=== PATIENT | male | born 1965 | race Caucasian/White ===

== ENCOUNTER 2020-02-18 09:28 | Emergency (ER) | payer OTHER ==
[2020-02-18 09:41] VITALS: BP 167/89; PULSE 56
[2020-02-18] MEDS ORDERED: Ketorolac 60 MG/2 ML SDV IM ONE (10:15)
--- NOTE | 2020-02-18 10:21 | EDM.PDOC ---
ED HPI GENERAL MEDICAL PROBLEM - General Chief Complaint: Lower Extremity Injury/Pain Stated Complaint: LEFT ANKLE PAIN Time Seen by Provider: 02/18/20 10:05 Source of Information: Reports: Patient, Old Records History Limitations: Reports: No Limitations - History of Present Illness INITIAL COMMENTS - FREE TEXT/NARRATIVE: 54 yo male developed intermittent L ankle pain starting last night about midnight. Pain kept him awake most of the night. He denies injury or swelling. Nothing hurts to touch on the ankle. No hx of the same. No self tx before arrival. Pain seems less often with his foot down and more often when it is up with him lying. He called his primary this morning and was told to come to the ER(Dr. Salgado). Has a recent hx of orchiectomy for testicular CA. Also, has a pHx of AODM x 8 yrs. Onset: Today Onset Date: 02/18/20 Onset Time: 00:00 Duration: Intermittent Location: Reports: Lower Extremity, Left Quality: Reports: Stabbing, Throbbing Severity: Severe Improves with: Reports: Other (just goes away) Worsens with: Reports: Other (unknown, seems worse when up. ) Context: Reports: Other (See HPI) Associated Symptoms: Reports: No Other Symptoms Treatments NATUROPATHIC ONCOLOGY PROVIDER: Reports: Other (see below) (none) Left Ankle Pain Score (Numeric/FACES): 8 - Related Data Allergies Allergy/AdvReac Type Severity Reaction Status Date / Time No Known Allergies Allergy Verified 02/18/20 09:41 Home Meds: Home Meds Aspirin [Ecotrin EC] 81 mg PO DAILY 02/18/20 [History] Escitalopram Oxalate [Lexapro] 10 mg PO DAILY 02/18/20 [History] Lisinopril [Zestril] 2.5 tab PO DAILY 02/18/20 [History] Rosuvastatin [Crestor] 10 mg PO DAILY 02/18/20 [History] metFORMIN [Glucophage] 1,000 mg PO BIDMEALS 02/18/20 [History] Past Medical History HEENT History: Reports: None Cardiovascular History: Reports: High Cholesterol, Hypertension Respiratory History: Reports: SOB Other Respiratory History: hx of years ago Genitourinary History: Reports: None Endocrine/Metabolic History: Reports: Diabetes, Type II Oncologic (Cancer) History: Reports: Other (See Below) Dermatologic History: Reports: Other (See Below) Other Dermatologic History: poison say- sever reaction - Infectious Disease History Infectious Disease History: Reports: Chicken Pox, Measles, Shingles - Past Surgical History Head Surgeries/Procedures: Reports: None HEENT Surgical History: Reports: Adenoidectomy, LASIK, Tonsillectomy Cardiovascular Surgical History: Reports: None Respiratory Surgical History: Reports: None Male Surgical History: Reports: Other (See Below) Other Male Surgeries/Procedures: left testicle removed 2019 due to CA Endocrine Surgical History: Reports: None Oncologic Surgical History: Reports: None Dermatological Surgical History: Reports: None Social & Family History - Tobacco Use Smoking Status *Q: Former Smoker Used Tobacco, but Quit: Yes Month/Year Tobacco Last Used: 2004 Second Hand Smoke Exposure: No - Caffeine Use Caffeine Use: Reports: Coffee, Soda - Recreational Drug Use Recreational Drug Use: No Review of Systems - Review of Systems Review Of Systems: See Below Constitutional: Reports: No Symptoms Musculoskeletal: Reports: Joint Pain (intermittent L ankle pain). Denies: Leg Pain, Foot Pain, Joint Swelling Skin: Reports: No Symptoms Neurological: Reports: No Symptoms. Denies: Numbness, Paresthesia, Tingling, Difficulty Walking, Weakness ED EXAM, GENERAL - Physical Exam Exam: See Below Exam Limited By: No Limitations General Appearance: Alert, WD/WN, No Apparent Distress Cardiovascular: Other Peripheral Pulses: 2+: Posterior Tibial (L), Posterior Tibial (R), Dorsalis Pedis (L), Dorsalis Pedis (R) Extremities: Normal Inspection, Normal Range of Motion, Non-Tender, No Pedal Edema. No: Pedal Edema Neurological: Alert, Oriented, CN II-XII Intact, Normal Cognition, No Motor/ Sensory Deficits Psychiatric: Normal Affect, Normal Mood Skin Exam: Warm, Dry, Intact, No Rash, Other (some chronic brawny skin discoloration, no redness or change in skin temp. ) Course - Vital Signs Last Recorded V/S: Last Vital Signs Temp 35.2 C L 02/18/20 09:51 Pulse 56 L 02/18/20 09:51 Resp 16 02/18/20 09:51 BP 167/89 H 02/18/20 09:51 Pulse Ox 100 02/18/20 09:51 - Orders/Labs/Meds Meds: Medications Discontinued Medications Generic Name Dose Route Start Last Admin Trade Name Sera PRN Reason Stop Dose Admin Ketorolac Tromethamine 60 mg 02/18/20 10:15 02/18/20 10:19 Toradol IM 02/18/20 10:16 60 mg ONETIME ONE Administration - Radiology Interpretation Free Text/Narrative:: L ankle [id number] degen changes only. - Re-Assessments/Exams Free Text/Narrative Re-Assessment/Exam: 02/18/20 11:15 Pain not gone, but much less frequent since the Toradol was given. He is not interested at this time in meds for neuropathy. Has a virtual appt with his primary tomorrow. Departure - Departure Time of Disposition: 11:20 Disposition: Home, Self-Care 01 Condition: Fair Clinical Impression: Ankle pain, left Qualifiers: Chronicity: acute Qualified Code(s): M25.572 - Pain in left ankle and joints of left foot - Discharge Information *PRESCRIPTION DRUG MONITORING PROGRAM REVIEWED*: No *COPY OF PRESCRIPTION DRUG MONITORING REPORT IN PATIENT VAL: No Referrals: PCP,None [Primary Care Provider] - Forms: ED Department Discharge Additional Instructions: Etodolac 400 mg every 12 hrs with food starting after 4 pm today. You may add acetaminophen for added relief up to 1000 mg every 6 hrs. If these do not help, you may benefit from meds directed at diabetic neuropathy like gabapentin. F/U with Dr. Salgado as scheduled. Sepsis Event Note - Evaluation Sepsis Screening Result: No Definite Risk - Focused Exam Vital Signs: Vital Signs Temp Pulse Resp BP Pulse Ox 02/18/20 09:51 35.2 C L 56 L 16 167/89 H 100 02/18/20 09:39 35.2 C L 56 L 16 167/89 H 100 Date Exam was Performed: 02/18/20 Time Exam was Performed: 11:15
--- NOTE | 2020-02-18 10:37 | CR ---
Ankle Min 3V Lt CLINICAL HISTORY: Ankle pain FINDINGS: The soft tissues are normal. No acute fracture or dislocation is noted. Ankle mortise is intact. Articular surfaces are smooth. There is some minimal spurring off the tip of the fibula. There are some ovoid calcifications near the plantar fascia. There is a small calcaneal spur. Impression: No fracture or osseous lesion Minimal degenerative changes Small calcaneal spur Ovoid calcifications just superficial to the plantar fascia. These may be vascular
== END 2020-02-18 11:24 | disposition home or self-care (01) ==
LOC: JP.ED 09:28
DX: M25.572 Pain in left ankle and joints of left foot (principal); E78.00 Pure hypercholesterolemia, unspecified; I10 Essential (primary) hypertension; E11.9 Type 2 diabetes mellitus without complications; Z79.82 Long term (current) use of aspirin; Z79.84 Long term (current) use of oral hypoglycemic drugs; Z87.891 Personal history of nicotine dependence
CPT/HCPCS: 73610; 96372; 99283; J1885

== ENCOUNTER 2021-09-09 15:56 | Inpatient (IN) | payer OTHER ==
--- NOTE | 2021-09-09 17:07 | EDM.PDOC ---
ED HPI GENERAL MEDICAL PROBLEM - General Chief Complaint: Lower Extremity Injury/Pain Stated Complaint: INJURED R FOOT, FEVER Time Seen by Provider: 09/09/21 16:55 Source of Information: Reports: Patient, Family, Provider, RN Notes Reviewed History Limitations: Reports: No Limitations - History of Present Illness INITIAL COMMENTS - FREE TEXT/NARRATIVE: 55-year-old gentleman presents emergency department today for new onset cellulitis to his right foot. I did receive a call from one of his providers the dairy specialist Dr. Mar who said he has a known diabetic foot ulcer that he has been working on however he presents today with new redness and swelling to the foot consistent with a cellulitis. He did do an x-ray in clinic which was unremarkable. He states over the last couple days is progressively gotten worse the chronic wound in his foot has been there for couple months he has had fevers for a couple of days generally feeling fatigued and rundown Right Leg Pain Score (Numeric/FACES): 5 - Related Data Allergies Allergy/AdvReac Type Severity Reaction Status Date / Time No Known Allergies Allergy Verified 09/09/21 16:17 Home Meds: Home Meds Escitalopram Oxalate [Lexapro] 10 mg PO DAILY 02/18/20 [History] Rosuvastatin [Crestor] 10 mg PO DAILY 02/18/20 [History] lisinopriL [Zestril] 2.5 tab PO DAILY 02/18/20 [History] metFORMIN [Glucophage] 1,000 mg PO BIDMEALS 02/18/20 [History] Aspirin [Aspirin EC] 325 mg PO DAILY 09/09/21 [History] Dulaglutide [Trulicity] 0.75 mg SQ WEEKLY 09/09/21 [History] Insulin Glarg,Human.Rec.Analog [Lantus Solostar] 10 units SQ BEDTIME 09/09/21 [History] Past Medical History Cardiovascular History: Reports: High Cholesterol, Hypertension Respiratory History: Reports: SOB Other Respiratory History: hx of years ago Musculoskeletal History: Reports: Other (See Below) Other Musculoskeletal History: swollen, inflamed right foot and calf Neurological History: Reports: Other (See Below) Other Neuro History: tia behind eye Psychiatric History: Reports: Depression Endocrine/Metabolic History: Reports: Diabetes, Type II Hematologic History: Reports: Other (See Below) Other Hematologic History: hx. bacterial meningitis Oncologic (Cancer) History: Reports: Other (See Below) Other Oncologic History: testicular CA Dermatologic History: Reports: Other (See Below) Other Dermatologic History: poison say- sever reaction - Infectious Disease History Infectious Disease History: Reports: Chicken Pox, Measles, Shingles - Past Surgical History Head Surgeries/Procedures: Reports: None HEENT Surgical History: Reports: Adenoidectomy, LASIK, Tonsillectomy Cardiovascular Surgical History: Reports: None Respiratory Surgical History: Reports: None GI Surgical History: Reports: None Male Surgical History: Reports: Other (See Below) Other Male Surgeries/Procedures: left testicle removed 2019 due to CA Endocrine Surgical History: Reports: None Neurological Surgical History: Reports: None Musculoskeletal Surgical History: Reports: None Oncologic Surgical History: Reports: None Dermatological Surgical History: Reports: None Social & Family History - Family History Family Medical History: No Pertinent Family History - Tobacco Use Tobacco Use Status *Q: Current Every Day Tobacco User Years of Tobacco use: 20 Packs/Tins Daily: 0.5 Used Tobacco, but Quit: No - Caffeine Use Caffeine Use: Reports: Coffee, Soda - Recreational Drug Use Recreational Drug Use: No Review of Systems - Review of Systems Review Of Systems: See Below Constitutional: Reports: Chills, Fever Eyes: Reports: No Symptoms Ears: Reports: No Symptoms Nose: Reports: No Symptoms Mouth/Throat: Reports: No Symptoms Respiratory: Reports: No Symptoms Cardiovascular: Reports: No Symptoms GI/Abdominal: Reports: No Symptoms Musculoskeletal: Reports: Foot Pain Skin: Reports: Pallor, Rash, Erythema, Wound ED EXAM, GENERAL - Physical Exam Exam: See Below Free Text/Narrative:: Examination of the right foot it is markedly edematous he does have a ulcer with chronic granulation tissue over metatarsal #2 and 3 the foot is warm to the touch tender to the touch, pedal pulses not palpable Exam Limited By: No Limitations General Appearance: Alert, WD/WN, No Apparent Distress Respiratory/Chest: No Respiratory Distress, Lungs Clear, Normal Breath Sounds, No Accessory Muscle Use, Chest Non-Tender Cardiovascular: Regular Rate, Rhythm, No Murmur Course - Vital Signs Last Recorded V/S: Last Vital Signs Temp 100.2 F 09/09/21 16:13 Pulse 78 09/09/21 17:48 Resp 16 09/09/21 17:48 BP 121/69 09/09/21 17:48 Pulse Ox 98 09/09/21 17:48 - Orders/Labs/Meds Orders: Active Orders 24 hr Category Date Time Status Vital Signs [RC] Q1H Care 09/09/21 17:02 Active COVID-19/FLU A+B/RSV [MOLEC] Stat Lab 09/09/21 17:53 Ordered CULTURE BLOOD [BC] Urgent Lab 09/09/21 17:12 Received CULTURE BLOOD [BC] Urgent Lab 09/09/21 17:18 Received Lactated Ringers [Ringers, Lactated] 1,000 ml Med 09/09/21 17:15 Active IV ASDIRECTED Piperacillin/Tazobactam [Piperacil-Tazobact] 4.5 gm Med 09/09/21 23:15 Active Sodium Chloride 0.9% [Normal Saline AdvBag] 100 ml IV Q6H Vancomycin 1.5 gm Med 09/09/21 18:00 Active Sodium Chloride 0.9% [Normal Saline] 250 ml IV Q12H Blood Culture x2 Reflex Set [OM.PC] Urgent Oth 09/09/21 17:02 Ordered Isolation [COMM] Stat Oth 09/09/21 17:05 Ordered Medication Orders Lactated Ringer's (Ringers, Lactated) 1,000 mls @ 999 mls/hr IV ASDIRECTED ARUN Last Admin: 09/09/21 17:44 Dose: 999 mls/hr Documented by: [id number] Vancomycin HCl 1.5 gm/ Sodium (Chloride) 250 mls @ 167 mls/hr IV Q12H ARUN Piperacillin Sod/Tazobactam (Sod 4.5 gm/ Sodium Chloride) 100 mls @ 100 mls/hr IV Q6H [facility] Labs: Laboratory Tests 09/09/21 09/09/21 09/09/21 Range/Units 17:12 17:12 17:12 WBC 9.4 (4.5-11.0) K/uL RBC 3.94 L (4.30-5.90) M/uL Hgb 11.6 L (12.0-15.0) g/dL Hct 35.0 L (40.0-54.0) % MCV 89 (80-98) fL MCH 29 (27-31) pg MCHC 33 (32-36) % Plt Count 319 (150-400) K/uL Add Manual Diff Yes Neutrophils % (Manual) 71 H (36-66) % Lymphocytes % (Manual) 22 L (24-44) % Monocytes % (Manual) 6 (2-6) % Eosinophils % (Manual) 1 L (2-4) % Atypical Lymphocytes Few Sodium 135 L (140-148) mmol/L Potassium 4.8 (3.6-5.2) mmol/L Chloride 99 L (100-108) mmol/L Carbon Dioxide 29 (21-32) mmol/L Anion Gap 11.8 (5.0-14.0) mmol/L BUN 25 H (7-18) mg/dL Creatinine 1.2 (0.8-1.3) mg/dL Est Cr Clr Drug Dosing 85.39 mL/min Estimated GFR (MDRD) > 60 (>60) Glucose 216 H (74-106) mg/dL Lactic Acid 0.9 (0.4-2.0) mmol/L Calcium 8.5 (8.5-10.1) mg/dL Total Bilirubin 0.4 (0.2-1.0) mg/dL AST 23 (15-37) U/L ALT 37 (12-78) U/L Alkaline Phosphatase 103 (46-116) U/L C-Reactive Protein 18.95 H (0.0-0.3) mg/dL Total Protein 7.7 (6.4-8.2) g/dL Albumin 2.6 L (3.4-5.0) g/dL Globulin 5.1 H (2.3-3.5) g/dL Albumin/Globulin Ratio 0.5 L (1.2-2.2) Procalcitonin ng/mL 09/09/21 Range/Units 17:12 WBC (4.5-11.0) K/uL RBC (4.30-5.90) M/uL Hgb (12.0-15.0) g/dL Hct (40.0-54.0) % MCV (80-98) fL MCH (27-31) pg MCHC (32-36) % Plt Count (150-400) K/uL Add Manual Diff Neutrophils % (Manual) (36-66) % Lymphocytes % (Manual) (24-44) % Monocytes % (Manual) (2-6) % Eosinophils % (Manual) (2-4) % Atypical Lymphocytes Sodium (140-148) mmol/L Potassium (3.6-5.2) mmol/L Chloride (100-108) mmol/L Carbon Dioxide (21-32) mmol/L Anion Gap (5.0-14.0) mmol/L BUN (7-18) mg/dL Creatinine (0.8-1.3) mg/dL Est Cr Clr Drug Dosing mL/min Estimated GFR (MDRD) (>60) Glucose (74-106) mg/dL Lactic Acid (0.4-2.0) mmol/L Calcium (8.5-10.1) mg/dL Total Bilirubin (0.2-1.0) mg/dL AST (15-37) U/L ALT (12-78) U/L Alkaline Phosphatase (46-116) U/L C-Reactive Protein (0.0-0.3) mg/dL Total Protein (6.4-8.2) g/dL Albumin (3.4-5.0) g/dL Globulin (2.3-3.5) g/dL Albumin/Globulin Ratio (1.2-2.2) Procalcitonin 0.14 ng/mL Meds: Medications Generic Name Dose Route Start Last Admin Trade Name Freq PRN Reason Stop Dose Admin Lactated Ringer's 1,000 mls @ 999 mls/hr 09/09/21 17:15 09/09/21 17:44 Ringers, Lactated IV 999 mls/hr ASDIRECTED ARUN Administration Vancomycin HCl 1.5 gm/ Sodium 250 mls @ 167 mls/hr 09/09/21 18:00 Chloride IV Q12H ARUN Piperacillin Sod/Tazobactam 100 mls @ 100 mls/hr 09/09/21 23:15 Sod 4.5 gm/ Sodium Chloride IV Q6H ARUN Discontinued Medications Generic Name Dose Route Start Last Admin Trade Name Freq PRN Reason Stop Dose Admin Piperacillin Sod/Tazobactam 100 mls @ 100 mls/hr 09/09/21 17:15 09/09/21 17:43 Sod 4.5 gm/ Sodium Chloride IV 09/09/21 18:00 100 mls/hr Q6H ARUN Administration Departure - Departure Time of Disposition: 18:35 Disposition: Admitted As Inpatient 66 Condition: Fair Clinical Impression: Cellulitis of right foot Diabetic foot ulcer Qualifiers: Diabetic foot ulcer location: midfoot Diabetes mellitus type: type 2 Laterality: left Non-pressure ulcer stage: with fat layer exposed Qualified Code(s): E11.621 - Type 2 diabetes mellitus with foot ulcer; L97.422 - 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 - Discharge Information Referrals: Chiquis Salgado MD [Primary Care Provider] - Forms: ED Department Discharge Sepsis Event Note (ED) - Evaluation Sepsis Screening Result: Sepsis Risk - Focused Exam Vital Signs: Vital Signs Temp Pulse Resp BP Pulse Ox 09/09/21 17:48 78 16 121/69 98 09/09/21 16:13 100.2 F 93 16 136/72 97 - My Orders Last 24 Hours: My Active Orders 09/09/21 17:02 Vital Signs [RC] Q1H Blood Culture x2 Reflex Set [OM.PC] Urgent 09/09/21 17:05 Isolation [COMM] Stat 09/09/21 17:12 CULTURE BLOOD [BC] Urgent 09/09/21 17:15 Lactated Ringers [Ringers, Lactated] 1,000 ml IV ASDIRECTED 09/09/21 17:18 CULTURE BLOOD [BC] Urgent 09/09/21 17:53 COVID-19/FLU A+B/RSV [MOLEC] Stat 09/09/21 18:00 Vancomycin 1.5 gm Sodium Chloride 0.9% [Normal Saline] 250 ml IV Q12H 09/09/21 23:15 Piperacillin/Tazobactam [Piperacil-Tazobact] 4.5 gm Sodium Chloride 0.9% [Normal Saline AdvBag] 100 ml IV Q6H - Assessment/Plan Last 24 Hours: My Active Orders 09/09/21 17:02 Vital Signs [RC] Q1H Blood Culture x2 Reflex Set [OM.PC] Urgent 09/09/21 17:05 Isolation [COMM] Stat 09/09/21 17:12 CULTURE BLOOD [BC] Urgent 09/09/21 17:15 Lactated Ringers [Ringers, Lactated] 1,000 ml IV ASDIRECTED 09/09/21 17:18 CULTURE BLOOD [BC] Urgent 09/09/21 17:53 COVID-19/FLU A+B/RSV [MOLEC] Stat 09/09/21 18:00 Vancomycin 1.5 gm Sodium Chloride 0.9% [Normal Saline] 250 ml IV Q12H 09/09/21 23:15 Piperacillin/Tazobactam [Piperacil-Tazobact] 4.5 gm Sodium Chloride 0.9% [Normal Saline AdvBag] 100 ml IV Q6H Plan: Assessment Acuity = acute Site and laterality = cellulitis left foot Etiology = probable bacterial cause Manifestations = edema left foot Location of injury = Home Lab values = WBC unremarkable CBC unremarkable lactic acid normal 0.9 CRP elevated 18.5 procalcitonin normal range 0.4 Plan Blood cultures initiated emergent department, antibiotics Zosyn and vancomycin i nitiated emergency department call discussed case hospitalist on-call at 1800 kindly agreed to come evaluate the patient emergency department for admission This note was dictated using [employer] voice recognition software please call with any questions on syntax or grammar.
[2021-09-09] MEDS ORDERED: Piperacillin/Tazobactam 4.5 GM in Sodium Chloride 0.9% 100 ML IV SCH (17:15)
[2021-09-09] MEDS ORDERED: Lactated Ringers 1,000 ML IV SCH (17:15)
[2021-09-09 18:34] LABS: CORONAVIRUS COVID-19 NAA NEGATIVE (NEGATIVE)
--- NOTE | 2021-09-09 19:22 | PCM.HP.2 ---
H&P History of Present Illness - General Date of Service: 09/09/21 Admit Problem/Dx: Admission Diagnosis/Problem Admission Diagnosis/Problem Cellulitis and abscess of lower leg Source of Information: Patient, Provider, RN History Limitations: Reports: No Limitations - History of Present Illness Initial Comments - Free Text/Narative: chief complaint- Cellulitis of right lower leg This is a 55 year old male presented to ER for evaluation of worsen lower leg infection. and Mrs. Leonard reports he has been having diabetic ulcers for months. In the past the diabetic foot and legs ulcers have healed, but for the past two month ulcers on bottom of right foot have increase in size. His toes are swollen and now has blisters on the lower legs. reports fevers and chills this past weekend, temp 102.1. denies any pain in legs/foot due to neuropathy. Wound Care- Dr. Mar Primary Care - Dr. Salgado Immunizations- Covid 19 vaccinations x2, needs influenza Onset of Symptoms: Reports: Gradual (months- started in May after wearing a new pair of boots.) Symptom Onset Date: 09/04/21 (fever/chills) Duration of Symptoms: Reports: Getting Worse Location: Reports: Lower Extremity, Right Quality: Reports: Other (denies any pain) Improves with: Reports: None Worsens with: Reports: None Context: Reports: Other (diabetic foot ulcers) Associated Symptoms: Reports: Fever/Chills, Loss of Appetite, Nausea/Vomiting Right Leg Pain Score (Numeric/FACES): 5 - Related Data Allergies/Adverse Reactions: Allergies Allergy/AdvReac Type Severity Reaction Status Date / Time No Known Allergies Allergy Verified 09/09/21 16:17 Home Medications: Home Meds Escitalopram Oxalate [Lexapro] 10 mg PO DAILY 02/18/20 [History] Rosuvastatin [Crestor] 10 mg PO DAILY 02/18/20 [History] lisinopriL [Zestril] 2.5 tab PO DAILY 02/18/20 [History] metFORMIN [Glucophage] 1,000 mg PO BIDMEALS 02/18/20 [History] Aspirin [Aspirin EC] 325 mg PO DAILY 09/09/21 [History] Dulaglutide [Trulicity] 0.75 mg SQ WEEKLY 09/09/21 [History] Insulin Glarg,Human.Rec.Analog [Lantus Solostar] 10 units SQ BEDTIME 09/09/21 [History] Past Medical History HEENT History: Reports: None Cardiovascular History: Reports: High Cholesterol, Hypertension Respiratory History: Reports: SOB Other Respiratory History: hx of years ago Genitourinary History: Reports: None Musculoskeletal History: Reports: Other (See Below) Other Musculoskeletal History: swollen, inflamed right foot and calf Neurological History: Reports: Other (See Below) Other Neuro History: tia behind eye Psychiatric History: Reports: Depression Endocrine/Metabolic History: Reports: Diabetes, Type II Hematologic History: Reports: Other (See Below) Other Hematologic History: hx. bacterial meningitis Oncologic (Cancer) History: Reports: Other (See Below) Other Oncologic History: testicular CA Dermatologic History: Reports: Other (See Below) Other Dermatologic History: poison say- sever reaction - Infectious Disease History Infectious Disease History: Reports: Chicken Pox, Measles, Shingles - Past Surgical History Head Surgeries/Procedures: Reports: None HEENT Surgical History: Reports: Adenoidectomy, LASIK, Tonsillectomy Cardiovascular Surgical History: Reports: None Respiratory Surgical History: Reports: None GI Surgical History: Reports: None Male Surgical History: Reports: Other (See Below) Other Male Surgeries/Procedures: left testicle removed 2019 due to CA Endocrine Surgical History: Reports: None Neurological Surgical History: Reports: None Musculoskeletal Surgical History: Reports: None Oncologic Surgical History: Reports: None Dermatological Surgical History: Reports: None Social & Family History - Family History Family Medical History: No Pertinent Family History - Tobacco Use Tobacco Use Status *Q: Current Every Day Tobacco User Years of Tobacco use: 20 Packs/Tins Daily: 0.5 Used Tobacco, but Quit: No - Caffeine Use Caffeine Use: Reports: Coffee, Soda - Recreational Drug Use Recreational Drug Use: No - Living Situation & Occupation Living situation: Reports: Occupation: Employed (lives with of 5 years, 4 children, employed by [employer]) H&P Review of Systems - Review of Systems: Review Of Systems: See Below General: Reports: Fever, Chills, Malaise, Decreased Appetite HEENT: Reports: No Symptoms, Glasses Pulmonary: Reports: No Symptoms Cardiovascular: Reports: No Symptoms Gastrointestinal: Reports: Nausea Genitourinary: Reports: Other (2019- history of testicular cancer and removal of single teste.) Musculoskeletal: Reports: Joint Pain (right toes, right foot, right lower leg) Skin: Reports: Erythema (right lower leg), Wound (right anterior lower leg, right foot including toes), Change in Color (right lower leg) Psychiatric: Reports: No Symptoms Neurological: Reports: No Symptoms Hematologic/Lymphatic: Reports: No Symptoms Immunologic: Reports: No Symptoms Exam - Exam Exam: See Below - Vital Signs Vital Signs: Last Vital Signs Temp 100.2 F 09/09/21 16:13 Pulse 78 09/09/21 17:48 Resp 16 09/09/21 17:48 BP 121/69 09/09/21 17:48 Pulse Ox 98 09/09/21 17:48 Weight: 221 lb - Exam Quality Assessment: DVT Prophylaxis, Skin Breakdown General: Alert, Oriented, 4 HEENT: PERRLA, Hearing Intact, Mucosa Moist & [place], Nares Patent, Normal Nasal Septum, Posterior Pharynx Clear, Conjunctiva Clear, EOMI, EACs Clear, TMs Clear Neck: Supple, Trachea Midline, 2 Lungs: Clear to Auscultation, Normal Respiratory Effort Cardiovascular: Regular Rate, Regular Rhythm, Normal S1, Normal S2 GI/Abdominal Exam: Normal Bowel Sounds, Soft, Non-Tender, No Organomegaly, No Distention, No Abnormal Bruit, No Mass, Pelvis Stable (Male) Exam: Deferred Rectal (Males) Exam: Deferred Back Exam: Normal Inspection, Full Range of Motion Extremities: Normal Capillary Refill (left foot), Pedal Edema (right leg), Slow Capillary Refill (right foot), Joint Swelling (right foot including toes), Limited Range of Motion (right ankle), Increased Warmth (right lower leg), Redness (right lower leg, foot and toes) Peripheral Pulses: 0: Dorsalis Pedis (R), 2+: Radial (L), Radial (R), Dorsalis Pedis (L) Skin: Warm, Ecchymosis, Wound (right lower leg), Decubitis (right foot and lower leg), Other (left toenail very long and curling over) Neurological: Reflexes Equal Bilateral, Strength Equal Bilateral Neuro Extensive - Mental Status: Alert, Oriented x3, Normal Mood/Affect, Normal Cognition Neuro Extensive - Motor, Sensory, Reflexes: Motor/Sensory Deficits Psychiatric: Alert, Normal Affect, Normal Mood - Patient Data Lab Results Last 24 hrs: Laboratory Results - last 24 hr 09/09/21 09/09/21 09/09/21 Range/Units 17:12 17:12 17:12 WBC 9.4 (4.5-11.0) K/uL RBC 3.94 L (4.30-5.90) M/uL Hgb 11.6 L (12.0-15.0) g/dL Hct 35.0 L (40.0-54.0) % MCV 89 (80-98) fL MCH 29 (27-31) pg MCHC 33 (32-36) % Plt Count 319 (150-400) K/uL Add Manual Diff Yes Neutrophils % (Manual) 71 H (36-66) % Lymphocytes % (Manual) 22 L (24-44) % Monocytes % (Manual) 6 (2-6) % Eosinophils % (Manual) 1 L (2-4) % Atypical Lymphocytes Few Sodium 135 L (140-148) mmol/L Potassium 4.8 (3.6-5.2) mmol/L Chloride 99 L (100-108) mmol/L Carbon Dioxide 29 (21-32) mmol/L Anion Gap 11.8 (5.0-14.0) mmol/L BUN 25 H (7-18) mg/dL Creatinine 1.2 (0.8-1.3) mg/dL Est Cr Clr Drug Dosing 85.39 mL/min Estimated GFR (MDRD) > 60 (>60) Glucose 216 H (74-106) mg/dL Lactic Acid 0.9 (0.4-2.0) mmol/L Calcium 8.5 (8.5-10.1) mg/dL Total Bilirubin 0.4 (0.2-1.0) mg/dL AST 23 (15-37) U/L ALT 37 (12-78) U/L Alkaline Phosphatase 103 (46-116) U/L C-Reactive Protein 18.95 H (0.0-0.3) mg/dL Total Protein 7.7 (6.4-8.2) g/dL Albumin 2.6 L (3.4-5.0) g/dL Globulin 5.1 H (2.3-3.5) g/dL Albumin/Globulin Ratio 0.5 L (1.2-2.2) Procalcitonin ng/mL Influenza Type A RNA (NEGATIVE) RSV RNA (INAAT) (NEGATIVE) Influenza Type B RNA (NEGATIVE) SARS-CoV-2 RNA (DAISY) (NEGATIVE) 09/09/21 09/09/21 Range/Units 17:12 17:53 WBC (4.5-11.0) K/uL RBC (4.30-5.90) M/uL Hgb (12.0-15.0) g/dL Hct (40.0-54.0) % MCV (80-98) fL MCH (27-31) pg MCHC (32-36) % Plt Count (150-400) K/uL Add Manual Diff Neutrophils % (Manual) (36-66) % Lymphocytes % (Manual) (24-44) % Monocytes % (Manual) (2-6) % Eosinophils % (Manual) (2-4) % Atypical Lymphocytes Sodium (140-148) mmol/L Potassium (3.6-5.2) mmol/L Chloride (100-108) mmol/L Carbon Dioxide (21-32) mmol/L Anion Gap (5.0-14.0) mmol/L BUN (7-18) mg/dL Creatinine (0.8-1.3) mg/dL Est Cr Clr Drug Dosing mL/min Estimated GFR (MDRD) (>60) Glucose (74-106) mg/dL Lactic Acid (0.4-2.0) mmol/L Calcium (8.5-10.1) mg/dL Total Bilirubin (0.2-1.0) mg/dL AST (15-37) U/L ALT (12-78) U/L Alkaline Phosphatase (46-116) U/L C-Reactive Protein (0.0-0.3) mg/dL Total Protein (6.4-8.2) g/dL Albumin (3.4-5.0) g/dL Globulin (2.3-3.5) g/dL Albumin/Globulin Ratio (1.2-2.2) Procalcitonin 0.14 ng/mL Influenza Type A RNA Negative (NEGATIVE) RSV RNA (INAAT) Negative (NEGATIVE) Influenza Type B RNA Negative (NEGATIVE) SARS-CoV-2 RNA (DAISY) Negative (NEGATIVE) Result Diagrams: 09/09/21 17:12 09/09/21 17:12 Sepsis Event Note - Evaluation Sepsis Screening Result: Sepsis Risk - Focused Exam Vital Signs: Vital Signs Temp Pulse Resp BP Pulse Ox 09/09/21 17:48 78 16 121/69 98 09/09/21 16:13 100.2 F 93 16 136/72 97 - Problem List (1) DM (diabetes mellitus), type 2 with peripheral vascular complications Status: Acute Priority: High Current Visit: Yes (2) Diabetic foot ulcer SNOMED Code(s): 876382827 ICD Code: E11.621 - TYPE 2 DIABETES MELLITUS WITH FOOT ULCER; L97.509 - NON- PRESSURE CHRONIC ULCER OTH PRT UNSP FOOT W UNSP SEVERITY Status: Acute Current Visit: Yes Qualifiers: Diabetic foot ulcer location: midfoot Diabetes mellitus type: type 2 Laterality: right Non-pressure ulcer stage: with fat layer exposed Qualified Code(s): E11.621 - Type 2 diabetes mellitus with foot ulcer; L97.412 - Non- pressure chronic ulcer of right heel and midfoot with fat layer exposed (3) Cellulitis of right foot SNOMED Code(s): 189793863 ICD Code: L03.115 - CELLULITIS OF RIGHT LOWER LIMB Status: Acute Priority: High Current Visit: Yes (4) Tobacco dependence due to cigarettes SNOMED Code(s): 69361672232389073 ICD Code: F17.210 - NICOTINE DEPENDENCE, CIGARETTES, UNCOMPLICATED Status: Acute Priority: High Current Visit: Yes Problem List Initiated/Reviewed/Updated: Yes Orders Last 24hrs: Active Orders 24 hr Category Date Time Status Patient Status Manage Transfer [TRANSFER] Routine ADT 09/09/21 18:45 Active Vital Signs [RC] Q1H Care 09/09/21 17:02 Active Wound Care [RC] DAILY Care 09/09/21 19:04 Active Consult to Wound Care Services [CONS] Routine Cons 09/09/21 19:04 Active Foot wo Cont Rt [MR] Stat Exams 09/09/21 19:04 Ordered Lwr Ext Non Joint wo Cont Rt [MR] Stat Exams 09/09/21 19:04 Ordered CULTURE BLOOD [BC] Urgent Lab 09/09/21 17:12 Received CULTURE BLOOD [BC] Urgent Lab 09/09/21 17:18 Received Lactated Ringers [Ringers, Lactated] 1,000 ml Med 09/09/21 17:15 Active IV ASDIRECTED Piperacillin/Tazobactam [Piperacil-Tazobact] 4.5 gm Med 09/09/21 23:15 Active Sodium Chloride 0.9% [Normal Saline AdvBag] 100 ml IV Q6H Vancomycin 1.5 gm Med 09/09/21 18:00 Active Sodium Chloride 0.9% [Normal Saline] 250 ml IV Q12H Blood Culture x2 Reflex Set [OM.PC] Urgent Oth 09/09/21 17:02 Ordered Isolation [COMM] Stat Oth 09/09/21 17:05 Ordered Resuscitation Status Routine Resus Stat 09/09/21 18:48 Ordered Medication Orders Lactated Ringer's (Ringers, Lactated) 1,000 mls @ 999 mls/hr IV ASDIRECTED [facility] Last Admin: 09/09/21 17:44 Dose: 999 mls/hr Documented by: ALICE Vancomycin HCl 1.5 gm/ Sodium (Chloride) 250 mls @ 167 mls/hr IV Q12H [facility] Last Admin: 09/09/21 18:49 Dose: 167 mls/hr Documented by: ALICE Piperacillin Sod/Tazobactam (Sod 4.5 gm/ Sodium Chloride) 100 mls @ 100 mls/hr IV Q6H [facility] Assessment/Plan Comment:: ASSESSMENT AND PLAN Diabetic Foot Ulcer, Cellulitis right lower limb -IV Zosyn 4.5 gm every 6 hours -IV Vancomycin 1.5 gm every 12 hours -IV Normal Saline 125 ml/hr overnight for rehydration -daily dressing change -consult to Wound Care- outpatient care by Dr. Mar -Imaging MRI of right lower leg-including foot and toes -blood cultures x2 pending -am labs CBC, BMP, CRP Diabetes type 2 with peripheral vascular complications -blood glucose check before meals- has Sp continuos glucose monitoring- right upper arm -Lantus 10 units subcut daily -Sliding scale insulin- low dose -Hold Metformin -needs toenails clipped on left foot Hypertension- -Lisinopril 2.5 mg daily -Crestor 10 mg daily -monitor blood pressure every shift. Tobacco use - smokes 5 cigarettes for years -declines patch or gum Maintenance issues - - DVT prophylaxis - Lovenox 40 mg every 24 hours - GI prophylaxis -PPI - Nutrition - consistent carb diet - Holley catheter -not indicated CODE STATUS - FULL Admission justification -this patient will be admitted for inpatient services and is medically appropriate meeting medical necessity for inpatient admission as outlined in my documentation. I reasonably expect the patient will require inpatient services that span a period time over 2 midnights. I reasonably expect this patient to be discharged or transferred within 96 hours [facility]. Disposition -home with family Primary care physician - Dr. Chiquis Salgado [facility] - Dr. Yvonne M.D. - Mortality Measure Prognosis:: Good
[2021-09-09] MEDS ORDERED: Docusate Sodium 100 MG Cap PO PRN (20:05)
[2021-09-09] MEDS ORDERED: Enoxaparin 40 MG/0.4 ML Syringe SUBCUT SCH (20:05)
[2021-09-09] MEDS ORDERED: diphenhydrAMINE 25 MG Cap PO PRN (20:05)
[2021-09-09] MEDS ORDERED: Albuterol 0.083% 2.5 MG/3 ML Neb Soln NEB PRN (20:05)
[2021-09-09] MEDS ORDERED: Melatonin 3 MG Tab PO PRN (20:05)
[2021-09-09] MEDS ORDERED: Bisacodyl 5 MG Tab PO PRN (20:05)
[2021-09-09] MEDS ORDERED: oxyCODONE 5 MG Tab PO PRN (20:05)
[2021-09-09] MEDS ORDERED: Glucagon,Human Recombinant 1 MG Vial IM PRN (20:05)
[2021-09-09] MEDS ORDERED: Acetaminophen 325 MG Tab PO PRN (20:05)
[2021-09-09] MEDS ORDERED: 50% Dextrose in Water 50 ML Syringe IVPUSH PRN (20:05)
[2021-09-09] MEDS ORDERED: LORazepam 2 MG/ML SDV IV PRN (20:05)
[2021-09-09] MEDS ORDERED: Morphine 2 MG/ML SYRINGE IVPUSH PRN (20:05)
[2021-09-09] MEDS: Insulin Lispro 100 Unit/ML 3 ML KwikPen SUBCUT SCH (21:35)
[2021-09-09] MEDS: Insulin Glargine,Human Rec. Analog 100 Units/ML 3 ML Pen SUBCUT SCH (21:35)
[2021-09-09] MEDS: Piperacillin/Tazobactam 4.5 GM in Sodium Chloride 0.9% 100 ML IV SCH (23:08)
[2021-09-10] MEDS: Sodium Chloride 0.9% 1,000 ML IV SCH ×2 (03:14→14:37)
[2021-09-10] MEDS: Piperacillin/Tazobactam 4.5 GM in Sodium Chloride 0.9% 100 ML IV SCH (05:20)
[2021-09-10] MEDS: Insulin Lispro 100 Unit/ML 3 ML KwikPen SUBCUT SCH ×4 (08:32→20:05)
[2021-09-10] MEDS ORDERED: Lisinopril 5 MG Tab PO SCH ×2 (09:00)
[2021-09-10] MEDS ORDERED: Gadoteridol 279.3 MG/ML 20 ML SDV IV SCH (09:45)
[2021-09-10] MEDS: Escitalopram 10 MG Tab PO SCH (10:47)
[2021-09-10] MEDS: Lisinopril 2.5 MG Tab PO SCH (10:47)
[2021-09-10] MEDS: Rosuvastatin 10 MG Tab PO SCH (10:47)
--- NOTE | 2021-09-10 11:29 | CRLMR ---
For Patients: As a result of the Cures Act, medical imaging exams and procedure reports are released immediately into your electronic medical record. You may view this report before your referring provider. If you have questions, please contact your health care provider. HISTORY: Diabetic ulcer. TECHNIQUE: Noncontrast and contrast enhanced MRI right foot. [id number] includes the midfoot and forefoot. 20 mL of ProHance contrast was administered. COMPARISON: No prior. FINDINGS: There is a plantar foot ulcer present plantar to the 2nd MTP joint space. There is extensive cellulitis. There is septic arthritis of the 2nd and 3rd MTP joint spaces with joint effusions and with associated dorsal dislocation of the proximal phalanx with respect to the metatarsal bones. There is osteomyelitis of the 2nd metatarsal bone distally and likely of the proximal phalanx of the 2nd toe more proximally. Suspected osteomyelitis of the 3rd metatarsal head. Possible osteomyelitis of the distal shaft of the proximal phalanx of the 3rd toe. There are a few pockets of fluid within the soft tissues dorsal to the interspace between the 2nd and 3rd metatarsal bones, distal 3rd metatarsal bone and 3rd toe proximal phalanx likely reflecting soft tissue abscesses. 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 IMPRESSION: 1. Plantar foot ulcer underlying the 2nd metatarsophalangeal joint. 2. Septic arthritis of the 2nd and 3rd MTP joints with adjacent osteomyelitis (2nd metatarsal bone, 2nd toe proximal phalanx, 3rd metatarsal head and possibly the distal shaft of the proximal phalanx of the 3rd toe). 3. A few fluid collections within the dorsal soft tissues likely reflecting abscesses. 4. Extensive cellulitis. 5. Dorsal dislocations of the proximal phalanges of the 2nd and 3rd toes with respect to the metatarsal heads. 6. 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 Dictated by James Stout MD @ 09/10/2021 11:27:13 AM Dictated by: James Stout MD @ 09/10/2021 11:27:17 (Electronically Signed)
--- NOTE | 2021-09-10 11:35 | CRLMR ---
For Patients: As a result of the Cures Act, medical imaging exams and procedure reports are released immediately into your electronic medical record. You may view this report before your referring provider. If you have questions, please contact your health care provider. HISTORY: Diabetic ulcer. TECHNIQUE: Noncontrast and contrast enhanced MRI of the right lower leg. COMPARISON: No prior. FINDINGS: No osteomyelitis of the distal tibia or fibula. No osteomyelitis of the talus or calcaneus. There is extensive subcutaneous signal abnormality and enhancement likely reflecting a combination of edema and cellulitis. There are areas of muscle edema and increased muscle enhancement involving the anterior, peroneal, deep posterior compartment musculature and the medial head of the gastrocnemius along with some deep fascial plane enhancement suggesting myositis/fasciitis. There is no intramuscular or fascial plane fluid collection. No discrete soft tissue abscess. IMPRESSION: 1. Extensive subcutaneous signal abnormality and enhancement compatible with cellulitis. 2. Areas of deep muscle and fascial plane enhancement suggesting changes of myositis and fasciitis. No intramuscular or fascial plane fluid collection. 3. No soft tissue fluid collection to suggest an abscess. 4. No osteomyelitis of the tibia, fibula, talus or calcaneus. Dictated by James Stout MD @ 09/10/2021 11:34:13 AM Dictated by: James Stout MD @ 09/10/2021 11:34:19 (Electronically Signed)
[2021-09-10] MEDS: Piperacillin/Tazobactam/Dext 4.5 GM in Premix Bag 1 BAG IV SCH ×3 (12:10→23:45)
--- NOTE | 2021-09-10 15:14 | PCM.PN ---
- General Info Date of Service: 09/10/21 Subjective Update: Mr. Leonard is a 55-year-old gentleman who was admitted through the emergency department with increased swelling and erythema of his right foot, secondary to a diabetic foot infection. On admission he was started on IV antibiotic therapy with vancomycin and Zosyn as well as IV fluids for hydration. MRI was obtained today showing evidence of septic arthritis at the second and third MTP joints, abscess formation, and osteomyelitis. He is feeling somewhat improved and reports increased appetite and energy level. There is still significant swelling in the foot but area of erythema/cellulitis has improved with antibiotic therapy. Functional Status: Reports: Pain Controlled, Tolerating Diet, Urinating - Review of Systems General: Reports: Weakness, Fatigue. Denies: Fever, Chills Pulmonary: Reports: No Symptoms Cardiovascular: Reports: No Symptoms Gastrointestinal: Reports: No Symptoms Skin: Reports: Other (Swelling and erythema right foot) - Patient Data Vitals - Most Recent: Last Vital Signs Temp 97.7 F 09/10/21 14:38 Pulse 64 09/10/21 14:38 Resp 18 09/10/21 14:38 BP 123/75 09/10/21 14:38 Pulse Ox 97 09/10/21 14:38 Weight - Most Recent: 206 lb 5.643 oz I&O - Last 24 Hours: Intake & Output 09/10/21 09/10/21 09/10/21 06:59 14:59 22:59 Intake Total 2119 100 Output Total 1325 Balance 794 100 Lab Results Last 24 Hours: Laboratory Results - last 24 hr 09/09/21 09/09/21 09/09/21 Range/Units 17:12 17:12 17:12 WBC 9.4 (4.5-11.0) K/uL RBC 3.94 L (4.30-5.90) M/uL Hgb 11.6 L (12.0-15.0) g/dL Hct 35.0 L (40.0-54.0) % MCV 89 (80-98) fL MCH 29 (27-31) pg MCHC 33 (32-36) % Plt Count 319 (150-400) K/uL Neut % (Auto) (36-66) % Lymph % (Auto) (24-44) % Forrest % (Auto) (2-6) % Eos % (Auto) (2-4) % Baso % (Auto) (0-1) % Add Manual Diff Yes Neutrophils % (Manual) 71 H (36-66) % Lymphocytes % (Manual) 22 L (24-44) % Monocytes % (Manual) 6 (2-6) % Eosinophils % (Manual) 1 L (2-4) % Atypical Lymphocytes Few Sodium 135 L (140-148) mmol/L Potassium 4.8 (3.6-5.2) mmol/L Chloride 99 L (100-108) mmol/L Carbon Dioxide 29 (21-32) mmol/L Anion Gap 11.8 (5.0-14.0) mmol/L BUN 25 H (7-18) mg/dL Creatinine 1.2 (0.8-1.3) mg/dL Est Cr Clr Drug Dosing 85.39 mL/min Estimated GFR (MDRD) > 60 (>60) Glucose 216 H (74-106) mg/dL POC Glucose (74-106) mg/dL Lactic Acid 0.9 (0.4-2.0) mmol/L Calcium 8.5 (8.5-10.1) mg/dL Total Bilirubin 0.4 (0.2-1.0) mg/dL AST 23 (15-37) U/L ALT 37 (12-78) U/L Alkaline Phosphatase 103 (46-116) U/L C-Reactive Protein 18.95 H (0.0-0.3) mg/dL Total Protein 7.7 (6.4-8.2) g/dL Albumin 2.6 L (3.4-5.0) g/dL Globulin 5.1 H (2.3-3.5) g/dL Albumin/Globulin Ratio 0.5 L (1.2-2.2) Procalcitonin ng/mL Influenza Type A RNA (NEGATIVE) RSV RNA (INAAT) (NEGATIVE) Influenza Type B RNA (NEGATIVE) SARS-CoV-2 RNA (DAISY) (NEGATIVE) 09/09/21 09/09/21 09/10/21 Range/Units 17:12 17:53 04:19 WBC 8.7 (4.5-11.0) K/uL RBC 3.60 L (4.30-5.90) M/uL Hgb 10.7 L (12.0-15.0) g/dL Hct 32.4 L (40.0-54.0) % MCV 90 (80-98) fL MCH 30 (27-31) pg MCHC 33 (32-36) % Plt Count 270 (150-400) K/uL Neut % (Auto) 67.3 H (36-66) % Lymph % (Auto) 19.9 L (24-44) % Forrest % (Auto) 10.7 H (2-6) % Eos % (Auto) 1.4 L (2-4) % Baso % (Auto) 0.7 (0-1) % Add Manual Diff Neutrophils % (Manual) (36-66) % Lymphocytes % (Manual) (24-44) % Monocytes % (Manual) (2-6) % Eosinophils % (Manual) (2-4) % Atypical Lymphocytes Sodium (140-148) mmol/L Potassium (3.6-5.2) mmol/L Chloride (100-108) mmol/L Carbon Dioxide (21-32) mmol/L Anion Gap (5.0-14.0) mmol/L BUN (7-18) mg/dL Creatinine (0.8-1.3) mg/dL Est Cr Clr Drug Dosing mL/min Estimated GFR (MDRD) (>60) Glucose (74-106) mg/dL POC Glucose (74-106) mg/dL Lactic Acid (0.4-2.0) mmol/L Calcium (8.5-10.1) mg/dL Total Bilirubin (0.2-1.0) mg/dL AST (15-37) U/L ALT (12-78) U/L Alkaline Phosphatase (46-116) U/L C-Reactive Protein (0.0-0.3) mg/dL Total Protein (6.4-8.2) g/dL Albumin (3.4-5.0) g/dL Globulin (2.3-3.5) g/dL Albumin/Globulin Ratio (1.2-2.2) Procalcitonin 0.14 ng/mL Influenza Type A RNA Negative (NEGATIVE) RSV RNA (INAAT) Negative (NEGATIVE) Influenza Type B RNA Negative (NEGATIVE) SARS-CoV-2 RNA (DAISY) Negative (NEGATIVE) 09/10/21 09/10/21 Range/Units 04:19 10:59 WBC (4.5-11.0) K/uL RBC (4.30-5.90) M/uL Hgb (12.0-15.0) g/dL Hct (40.0-54.0) % MCV (80-98) fL MCH (27-31) pg MCHC (32-36) % Plt Count (150-400) K/uL Neut % (Auto) (36-66) % Lymph % (Auto) (24-44) % Forrest % (Auto) (2-6) % Eos % (Auto) (2-4) % Baso % (Auto) (0-1) % Add Manual Diff Neutrophils % (Manual) (36-66) % Lymphocytes % (Manual) (24-44) % Monocytes % (Manual) (2-6) % Eosinophils % (Manual) (2-4) % Atypical Lymphocytes Sodium 137 L (140-148) mmol/L Potassium 4.3 (3.6-5.2) mmol/L Chloride 102 (100-108) mmol/L Carbon Dioxide 27 (21-32) mmol/L Anion Gap 12.3 (5.0-14.0) mmol/L BUN 21 H (7-18) mg/dL Creatinine 1.2 (0.8-1.3) mg/dL Est Cr Clr Drug Dosing 85.39 mL/min Estimated GFR (MDRD) > 60 (>60) Glucose 142 H (74-106) mg/dL POC Glucose 122 H (74-106) mg/dL Lactic Acid (0.4-2.0) mmol/L Calcium 8.3 L (8.5-10.1) mg/dL Total Bilirubin (0.2-1.0) mg/dL AST (15-37) U/L ALT (12-78) U/L Alkaline Phosphatase (46-116) U/L C-Reactive Protein 17.23 H (0.0-0.3) mg/dL Total Protein (6.4-8.2) g/dL Albumin (3.4-5.0) g/dL Globulin (2.3-3.5) g/dL Albumin/Globulin Ratio (1.2-2.2) Procalcitonin ng/mL Influenza Type A RNA (NEGATIVE) RSV RNA (INAAT) (NEGATIVE) Influenza Type B RNA (NEGATIVE) SARS-CoV-2 RNA (DAISY) (NEGATIVE) Med Orders - Current: Current Medications Acetaminophen (Acetaminophen 325 Mg Tab) 650 mg PO Q4H PRN PRN Reason: Pain (Mild 1-3)/fever Albuterol (Albuterol 0.083% 2.5 Mg/3 Ml Neb Soln) 2.5 mg NEB Q4H PRN PRN Reason: Shortness Of Breath/wheezing Bisacodyl (Bisacodyl 5 Mg Tab) 5 mg PO DAILY PRN PRN Reason: Constipation Dextrose/Water (50% Dextrose In Water 50 Ml Syringe) 50 ml IVPUSH ASDIRECTED PRN PRN Reason: Hypoglycemia Diphenhydramine HCl (Diphenhydramine 25 Mg Cap) 25 mg PO BEDTIME PRN PRN Reason: Insomnia Docusate Sodium (Docusate Sodium 100 Mg Cap) 100 mg PO BID PRN PRN Reason: Constipation Enoxaparin Sodium (Enoxaparin 40 Mg/0.4 Ml Syringe) 40 mg SUBCUT BEDTIME [facility] Escitalopram Oxalate (Escitalopram 10 Mg Tab) 10 mg PO DAILY [facility] Last Admin: 09/10/21 10:47 Dose: 10 mg Documented by: Glucagon (Glucagon,Human Recombinant 1 Mg Vial) 1 mg IM ASDIRECTED PRN PRN Reason: Hypoglycemia Vancomycin HCl 1.5 gm/ Sodium (Chloride) 250 mls @ 167 mls/hr IV Q12H [facility] Last Admin: 09/10/21 06:21 Dose: 167 mls/hr Documented by: Piperacillin/Tazobactam/ (Dextrose 4.5 gm/ Premix) 100 mls @ 200 mls/hr IV Q6H [facility] Last Admin: 09/10/21 12:10 Dose: 200 mls/hr Documented by: Sodium Chloride (Normal Saline) 1,000 mls @ 100 mls/hr IV ASDIRECTED [facility] Insulin Glargine (Insulin Glargine,Human Rec. Analog 100 Units/Ml 3 Ml Pen) 10 units SUBCUT BEDTIME [facility] Last Admin: 09/09/21 21:35 Dose: 10 unit Documented by: Insulin Human Lispro (Insulin Lispro 100 Unit/Ml 3 Ml Kwikpen) 0 unit SUBCUT Q IDACANDBED [facility]; Protocol Last Admin: 09/10/21 11:02 Dose: Not Given Documented by: Lisinopril (Lisinopril 2.5 Mg Tab) 2.5 mg PO DAILY [facility] Last Admin: 09/10/21 10:47 Dose: 2.5 mg Documented by: Lorazepam (Lorazepam 2 Mg/Ml Sdv) 1 mg IV Q6H PRN PRN Reason: Irritability Melatonin (Melatonin 3 Mg Tab) 6 mg PO BEDTIME PRN PRN Reason: Insomnia Morphine Sulfate (Morphine 2 Mg/Ml Syringe) 2 mg IVPUSH Q2H PRN PRN Reason: Pain (severe 7-10) Oxycodone HCl (Oxycodone 5 Mg Tab) 10 mg PO Q4H PRN PRN Reason: Pain (moderate 4-6) Rosuvastatin Calcium (Rosuvastatin 10 Mg Tab) 10 mg PO DAILY [facility] Last Admin: 09/10/21 10:47 Dose: 10 mg Documented by: Discontinued Medications Enoxaparin Sodium (Enoxaparin 40 Mg/0.4 Ml Syringe) 40 mg SUBCUT DAILY [facility] Last Admin: 09/09/21 21:35 Dose: 40 mg Documented by: Gadoteridol (Gadoteridol 279.3 Mg/Ml 20 Ml Sdv) 20 ml IV . DIRECTED [facility] Last Admin: 09/10/21 10:38 Dose: 20 ml Documented by: Lactated Ringer's (Ringers, Lactated) 1,000 mls @ 999 mls/hr IV ASDIRECTED [facility] Last Admin: 09/09/21 17:44 Dose: 999 mls/hr Documented by: Piperacillin Sod/Tazobactam (Sod 4.5 gm/ Sodium Chloride) 100 mls @ 100 mls/hr IV Q6H [facility] Stop: 09/09/21 18:00 Last Admin: 09/09/21 17:43 Dose: 100 mls/hr Documented by: Piperacillin Sod/Tazobactam (Sod 4.5 gm/ Sodium Chloride) 100 mls @ 100 mls/hr IV Q6H [facility] Last Admin: 09/10/21 05:20 Dose: 100 mls/hr Documented by: Sodium Chloride (Normal Saline) 1,000 mls @ 125 mls/hr IV ASDIRECTED [facility] Last Admin: 09/10/21 14:37 Dose: 125 mls/hr Documented by: Lisinopril (Lisinopril 5 Mg Tab) 12.5 mg PO DAILY [facility] Lisinopril (Lisinopril 5 Mg Tab) 12.5 mg PO DAILY [facility] - Exam Quality Assessment: DVT Prophylaxis General: Alert, Oriented, Cooperative, Mild Distress Lungs: Clear to Auscultation, Normal Respiratory Effort Cardiovascular: Regular Rate, Regular Rhythm, No Murmurs GI/Abdominal Exam: Soft, Non-Tender, No Organomegaly, No Distention Extremities: Other (Swelling and erythema right foot, plantar callus with drainage) - Patient Data Lab Results Last 24 hrs: Laboratory Results - last 24 hr 09/09/21 09/09/21 09/09/21 Range/Units 17:12 17:12 17:12 WBC 9.4 (4.5-11.0) K/uL RBC 3.94 L (4.30-5.90) M/uL Hgb 11.6 L (12.0-15.0) g/dL Hct 35.0 L (40.0-54.0) % MCV 89 (80-98) fL MCH 29 (27-31) pg MCHC 33 (32-36) % Plt Count 319 (150-400) K/uL Neut % (Auto) (36-66) % Lymph % (Auto) (24-44) % Forrest % (Auto) (2-6) % Eos % (Auto) (2-4) % Baso % (Auto) (0-1) % Add Manual Diff Yes Neutrophils % (Manual) 71 H (36-66) % Lymphocytes % (Manual) 22 L (24-44) % Monocytes % (Manual) 6 (2-6) % Eosinophils % (Manual) 1 L (2-4) % Atypical Lymphocytes Few Sodium 135 L (140-148) mmol/L Potassium 4.8 (3.6-5.2) mmol/L Chloride 99 L (100-108) mmol/L Carbon Dioxide 29 (21-32) mmol/L Anion Gap 11.8 (5.0-14.0) mmol/L BUN 25 H (7-18) mg/dL Creatinine 1.2 (0.8-1.3) mg/dL Est Cr Clr Drug Dosing 85.39 mL/min Estimated GFR (MDRD) > 60 (>60) Glucose 216 H (74-106) mg/dL POC Glucose (74-106) mg/dL Lactic Acid 0.9 (0.4-2.0) mmol/L Calcium 8.5 (8.5-10.1) mg/dL Total Bilirubin 0.4 (0.2-1.0) mg/dL AST 23 (15-37) U/L ALT 37 (12-78) U/L Alkaline Phosphatase 103 (46-116) U/L C-Reactive Protein 18.95 H (0.0-0.3) mg/dL Total Protein 7.7 (6.4-8.2) g/dL Albumin 2.6 L (3.4-5.0) g/dL Globulin 5.1 H (2.3-3.5) g/dL Albumin/Globulin Ratio 0.5 L (1.2-2.2) Procalcitonin ng/mL Influenza Type A RNA (NEGATIVE) RSV RNA (INAAT) (NEGATIVE) Influenza Type B RNA (NEGATIVE) SARS-CoV-2 RNA (DAISY) (NEGATIVE) 09/09/21 09/09/21 09/10/21 Range/Units 17:12 17:53 04:19 WBC 8.7 (4.5-11.0) K/uL RBC 3.60 L (4.30-5.90) M/uL Hgb 10.7 L (12.0-15.0) g/dL Hct 32.4 L (40.0-54.0) % MCV 90 (80-98) fL MCH 30 (27-31) pg MCHC 33 (32-36) % Plt Count 270 (150-400) K/uL Neut % (Auto) 67.3 H (36-66) % Lymph % (Auto) 19.9 L (24-44) % Forrest % (Auto) 10.7 H (2-6) % Eos % (Auto) 1.4 L (2-4) % Baso % (Auto) 0.7 (0-1) % Add Manual Diff Neutrophils % (Manual) (36-66) % Lymphocytes % (Manual) (24-44) % Monocytes % (Manual) (2-6) % Eosinophils % (Manual) (2-4) % Atypical Lymphocytes Sodium (140-148) mmol/L Potassium (3.6-5.2) mmol/L Chloride (100-108) mmol/L Carbon Dioxide (21-32) mmol/L Anion Gap (5.0-14.0) mmol/L BUN (7-18) mg/dL Creatinine (0.8-1.3) mg/dL Est Cr Clr Drug Dosing mL/min Estimated GFR (MDRD) (>60) Glucose (74-106) mg/dL POC Glucose (74-106) mg/dL Lactic Acid (0.4-2.0) mmol/L Calcium (8.5-10.1) mg/dL Total Bilirubin (0.2-1.0) mg/dL AST (15-37) U/L ALT (12-78) U/L Alkaline Phosphatase (46-116) U/L C-Reactive Protein (0.0-0.3) mg/dL Total Protein (6.4-8.2) g/dL Albumin (3.4-5.0) g/dL Globulin (2.3-3.5) g/dL Albumin/Globulin Ratio (1.2-2.2) Procalcitonin 0.14 ng/mL Influenza Type A RNA Negative (NEGATIVE) RSV RNA (INAAT) Negative (NEGATIVE) Influenza Type B RNA Negative (NEGATIVE) SARS-CoV-2 RNA (DAISY) Negative (NEGATIVE) 09/10/21 09/10/21 Range/Units 04:19 10:59 WBC (4.5-11.0) K/uL RBC (4.30-5.90) M/uL Hgb (12.0-15.0) g/dL Hct (40.0-54.0) % MCV (80-98) fL MCH (27-31) pg MCHC (32-36) % Plt Count (150-400) K/uL Neut % (Auto) (36-66) % Lymph % (Auto) (24-44) % Forrest % (Auto) (2-6) % Eos % (Auto) (2-4) % Baso % (Auto) (0-1) % Add Manual Diff Neutrophils % (Manual) (36-66) % Lymphocytes % (Manual) (24-44) % Monocytes % (Manual) (2-6) % Eosinophils % (Manual) (2-4) % Atypical Lymphocytes Sodium 137 L (140-148) mmol/L Potassium 4.3 (3.6-5.2) mmol/L Chloride 102 (100-108) mmol/L Carbon Dioxide 27 (21-32) mmol/L Anion Gap 12.3 (5.0-14.0) mmol/L BUN 21 H (7-18) mg/dL Creatinine 1.2 (0.8-1.3) mg/dL Est Cr Clr Drug Dosing 85.39 mL/min Estimated GFR (MDRD) > 60 (>60) Glucose 142 H (74-106) mg/dL POC Glucose 122 H (74-106) mg/dL Lactic Acid (0.4-2.0) mmol/L Calcium 8.3 L (8.5-10.1) mg/dL Total Bilirubin (0.2-1.0) mg/dL AST (15-37) U/L ALT (12-78) U/L Alkaline Phosphatase (46-116) U/L C-Reactive Protein 17.23 H (0.0-0.3) mg/dL Total Protein (6.4-8.2) g/dL Albumin (3.4-5.0) g/dL Globulin (2.3-3.5) g/dL Albumin/Globulin Ratio (1.2-2.2) Procalcitonin ng/mL Influenza Type A RNA (NEGATIVE) RSV RNA (INAAT) (NEGATIVE) Influenza Type B RNA (NEGATIVE) SARS-CoV-2 RNA (DAISY) (NEGATIVE) Result Diagrams: 09/10/21 04:19 09/10/21 04:19 Sepsis Event Note - Evaluation Sepsis Screening Result: No Definite Risk - Focused Exam Vital Signs: Vital Signs Temp Pulse Resp BP BP BP Pulse Ox 09/10/21 14:38 97.7 F 64 18 123/75 97 09/10/21 11:00 96.9 F 67 18 119/70 99 09/10/21 10:47 119/70 09/10/21 07:00 97.9 F 62 18 117/66 96 09/10/21 03:15 99.2 F 67 16 117/65 97 - Problem List Review Problem List Initiated/Reviewed/Updated: Yes - My Orders Last 24 Hours: My Active Orders 09/10/21 10:52 POC Glucose [Blood Glucose Check, Bedside] [RC] ONETIME 09/10/21 14:43 Extremity Non Vascular Rt [US] Urgent 09/10/21 15:10 Convert IV to Saline Lock [OM.PC] Routine 11/12/21 15:12 Consult to Physician [CONS] Routine 09/10/21 15:13 Notify Provider Consults [RC] ASDIRECTED 09/11/21 00:01 Sodium Chloride 0.9% @ 100 MLS/HR(1000ml) Sodium Chloride 0.9% [Normal Saline] 1,000 ml IV ASDIRECTED 09/11/21 Breakfast NPO After Midnight [Nothing per Oral After Midnight Diet] [DIET] - Plan Plan:: ASSESSMENT AND PLAN Diabetic Foot Ulcer, Cellulitis right lower limb-MRI obtained today shows evidence of septic arthritis, osteomyelitis, and at least 2 areas of abscess -IV Zosyn 4.5 gm every 6 hours -IV Vancomycin 1.5 gm every 12 hours -Saline lock IV, resume IV fluids at midnight -Consult Dr. Morris for surgical opinion in a.m. -Ultrasound to identify and locate abscess cavities -daily dressing change -blood cultures x2 pending Diabetes type 2 with peripheral vascular complications -blood glucose check before meals- has Sp [employer] glucose monitoring- right upper arm -Lantus 10 units subcut daily -Sliding scale insulin- low dose -Hold Metformin Hypertension- -Lisinopril 2.5 mg daily -Crestor 10 mg daily -monitor blood pressure every shift. Tobacco use - smokes 5 cigarettes for years -declines patch or gum Maintenance issues - - DVT prophylaxis - Lovenox 40 mg every 24 hours - GI prophylaxis -PPI - Nutrition - consistent carb diet - Holley catheter -not indicated CODE STATUS - FULL Admission justification -this patient will be admitted for inpatient services and is medically appropriate meeting medical necessity for inpatient admission as outlined in my documentation. I reasonably expect the patient will require inpatient services that span a period time over 2 midnights. I reasonably expect this patient to be discharged or transferred within 96 hours after admission to the [facility]. Disposition -home with family Primary care physician - Dr. Chiquis Salgado [facility] - Dr. Yvonne M.D.
--- NOTE | 2021-09-10 16:01 | CRLUS ---
For Patients: As a result of the Cures Act, medical imaging exams and procedure reports are released immediately into your electronic medical record. You may view this report before your referring provider. If you have questions, please contact your health care provider. INDICATION: Evaluate and hilary location of abscesses. TECHNIQUE: Ultrasound limited dorsal soft tissues of the right foot. COMPARISON: MRI right foot earlier same day dated 09/10/2021. FINDINGS/IMPRESSION: Dedicated sonographic imaging at the dorsal aspect of the right forefoot was performed. A 1.5 x 0.8 x 1.3 cm heterogeneous collection with peripheral vascularity consistent with abscess is located approximately 1.3 cm deep from the dorsal cutaneous surface. An additional 2.6 x 1.7 x 1.8 cm heterogeneous collection with peripheral vascularity is located approximately 0.5 cm deep from the dorsal cutaneous surface. Per cue selector notes, the sites were marked at the cutaneous surface. Dictated by Quintin Cramer MD @ 09/10/2021 4:00:06 PM (Electronically Signed)
[2021-09-10] MEDS: Insulin Glargine,Human Rec. Analog 100 Units/ML 3 ML Pen SUBCUT SCH (20:04)
[2021-09-10] MEDS: Enoxaparin 40 MG/0.4 ML Syringe SUBCUT SCH (20:05)
[2021-09-11] MEDS: Sodium Chloride 0.9% 1,000 ML IV SCH ×2 (02:12→09:45)
[2021-09-11] MEDS: Piperacillin/Tazobactam/Dext 4.5 GM in Premix Bag 1 BAG IV SCH ×4 (05:18→23:43)
[2021-09-11] MEDS ORDERED: Lidocaine 1% with EPINEPHrine 1:100,000 50 ML MDV ONE (06:37)
[2021-09-11] MEDS ORDERED: Meropenem 500 MG SDV ONE (06:37)
[2021-09-11] MEDS ORDERED: Bupivacaine 0.5% 30 ML SDV ONE (06:38)
[2021-09-11] MEDS ORDERED: Propofol 200 MG/20 ML SDV ONE (07:17)
[2021-09-11] MEDS ORDERED: Midazolam 1 MG/ML 2 ML SDV ONE (07:17)
[2021-09-11] MEDS ORDERED: fentaNYL 100 MCG/2 ML SDV ONE (07:17)
[2021-09-11] MEDS: Insulin Lispro 100 Unit/ML 3 ML KwikPen SUBCUT SCH ×4 (09:46→21:08)
[2021-09-11] MEDS: Escitalopram 10 MG Tab PO SCH (09:49)
[2021-09-11] MEDS: Rosuvastatin 10 MG Tab PO SCH (09:49)
[2021-09-11] MEDS: Linezolid 600 MG in Premix Bag 1 BAG IV SCH ×2 (09:50→21:13)
[2021-09-11] MEDS: Lisinopril 2.5 MG Tab PO SCH (09:50)
--- NOTE | 2021-09-11 13:36 | PCM.PN ---
- General Info Date of Service: 09/11/21 Subjective Update: Mr. Leonard operating room this morning by Dr. Morris and underwent debridement/drainage of abscesses in the right foot. He otherwise reports that he is feeling well, other than some fatigue. Appetite has remained good as has his energy level. Vital signs have been stable and he has remained afebrile. Functional Status: Reports: Tolerating Diet, Urinating - Review of Systems General: Reports: Weakness, Fatigue. Denies: Fever, Chills Pulmonary: Reports: No Symptoms Cardiovascular: Reports: No Symptoms Gastrointestinal: Reports: No Symptoms Musculoskeletal: Reports: Foot Pain - Patient Data Vitals - Most Recent: Last Vital Signs Temp 97.5 F 09/11/21 11:42 Pulse 58 L 09/11/21 11:42 Resp 16 09/11/21 11:42 BP 138/70 09/11/21 11:42 Pulse Ox 98 09/11/21 11:42 Weight - Most Recent: 206 lb 5.643 oz I&O - Last 24 Hours: Intake & Output 09/10/21 09/11/21 09/11/21 22:59 06:59 14:59 Intake Total 1292 1733 300 Output Total 400 1100 600 Balance 892 633 -300 Lab Results Last 24 Hours: Laboratory Results - last 24 hr 09/11/21 09/11/21 Range/Units 05:50 05:50 WBC 7.3 (4.5-11.0) K/uL RBC 3.37 L (4.30-5.90) M/uL Hgb 10.2 L (12.0-15.0) g/dL Hct 30.9 L (40.0-54.0) % MCV 92 (80-98) fL MCH 30 (27-31) pg MCHC 33 (32-36) % Plt Count 249 (150-400) K/uL Neut % (Auto) 65.6 (36-66) % Lymph % (Auto) 22.4 L (24-44) % Mcmullen % (Auto) 7.8 H (2-6) % Eos % (Auto) 2.7 (2-4) % Baso % (Auto) 1.5 H (0-1) % Sodium 138 L (140-148) mmol/L Potassium 4.6 (3.6-5.2) mmol/L Chloride 105 (100-108) mmol/L Carbon Dioxide 28 (21-32) mmol/L Anion Gap 9.6 (5.0-14.0) mmol/L BUN 19 H (7-18) mg/dL Creatinine 1.1 (0.8-1.3) mg/dL Est Cr Clr Drug Dosing 93.16 mL/min Estimated GFR (MDRD) > 60 (>60) Glucose 147 H (74-106) mg/dL Calcium 7.7 L (8.5-10.1) mg/dL Nolberto Results Last 24 Hours: Microbiology 09/11/21 07:57 Gram Stain - Final Foot, Right 09/11/21 07:54 Gram Stain - Final Foot, Right 09/09/21 17:18 Aerobic Blood Culture - Preliminary Blood - Arm, Right NO GROWTH AFTER 1 DAY Anaerobic Blood Culture - Preliminary NO GROWTH AFTER 1 DAY 09/09/21 17:12 Aerobic Blood Culture - Preliminary Blood - Arm, Left NO GROWTH AFTER 1 DAY Anaerobic Blood Culture - Preliminary NO GROWTH AFTER 1 DAY Med Orders - Current: Current Medications Acetaminophen (Acetaminophen 325 Mg Tab) 650 mg PO Q4H PRN PRN Reason: Pain (Mild 1-3)/fever Last Admin: 09/10/21 23:48 Dose: 650 mg Documented by: Albuterol (Albuterol 0.083% 2.5 Mg/3 Ml Neb Soln) 2.5 mg NEB Q4H PRN PRN Reason: Shortness Of Breath/wheezing Bisacodyl (Bisacodyl 5 Mg Tab) 5 mg PO DAILY PRN PRN Reason: Constipation Dextrose/Water (50% Dextrose In Water 50 Ml Syringe) 50 ml IVPUSH ASDIRECTED PRN PRN Reason: Hypoglycemia Diphenhydramine HCl (Diphenhydramine 25 Mg Cap) 25 mg PO BEDTIME PRN PRN Reason: Insomnia Docusate Sodium (Docusate Sodium 100 Mg Cap) 100 mg PO BID PRN PRN Reason: Constipation Enoxaparin Sodium (Enoxaparin 40 Mg/0.4 Ml Syringe) 40 mg SUBCUT BEDTIME ARUN Last Admin: 09/10/21 20:05 Dose: 40 mg Documented by: Escitalopram Oxalate (Escitalopram 10 Mg Tab) 10 mg PO DAILY ARUN Last Admin: 09/11/21 09:49 Dose: 10 mg Documented by: Glucagon (Glucagon,Human Recombinant 1 Mg Vial) 1 mg IM ASDIRECTED PRN PRN Reason: Hypoglycemia Piperacillin/Tazobactam/ (Dextrose 4.5 gm/ Premix) 100 mls @ 200 mls/hr IV Q6H [facility] Last Admin: 09/11/21 11:52 Dose: 200 mls/hr Documented by: Linezolid 600 mg/ Premix 300 mls @ 300 mls/hr IV Q12H [facility] Last Admin: 09/11/21 09:50 Dose: 300 mls/hr Documented by: Insulin Glargine (Insulin Glargine,Human Rec. Analog 100 Units/Ml 3 Ml Pen) 10 units SUBCUT BEDTIME [facility] Last Admin: 09/10/21 20:04 Dose: 10 unit Documented by: Insulin Human Lispro (Insulin Lispro 100 Unit/Ml 3 Ml Kwikpen) 0 unit SUBCUT QIDACANDBED [facility]; Protocol Last Admin: 09/11/21 11:53 Dose: 3 units Documented by: Lisinopril (Lisinopril 2.5 Mg Tab) 2.5 mg PO DAILY [facility] Last Admin: 09/11/21 09:50 Dose: 2.5 mg Documented by: Lorazepam (Lorazepam 2 Mg/Ml Sdv) 1 mg IV Q6H PRN PRN Reason: Irritability Melatonin (Melatonin 3 Mg Tab) 6 mg PO BEDTIME PRN PRN Reason: Insomnia Morphine Sulfate (Morphine 2 Mg/Ml Syringe) 2 mg IVPUSH Q2H PRN PRN Reason: Pain (severe 7-10) Oxycodone HCl (Oxycodone 5 Mg Tab) 10 mg PO Q4H PRN PRN Reason: Pain (moderate 4-6) Rosuvastatin Calcium (Rosuvastatin 10 Mg Tab) 10 mg PO DAILY [facility] Last Admin: 09/11/21 09:49 Dose: 10 mg Documented by: Discontinued Medications Bupivacaine HCl (Bupivacaine 0.5% 30 Ml Sdv) Confirm Administered Dose 30 ml .ROUTE .STK-MED ONE Stop: 09/11/21 06:39 Enoxaparin Sodium (Enoxaparin 40 Mg/0.4 Ml Syringe) 40 mg SUBCUT DAILY [facility] Last Admin: 09/09/21 21:35 Dose: 40 mg Documented by: Fentanyl (Fentanyl 100 Mcg/2 Ml Sdv) Confirm Administered Dose 100 mcg .ROUTE .STK-MED ONE Stop: 09/11/21 07:18 Gadoteridol (Gadoteridol 279.3 Mg/Ml 20 Ml Sdv) 20 ml IV . DIRECTED [facility] Last Admin: 09/10/21 10:38 Dose: 20 ml Documented by: Lactated Ringer's (Ringers, Lactated) 1,000 mls @ 999 mls/hr IV ASDIRECTED [facility] Last Admin: 09/09/21 17:44 Dose: 999 mls/hr Documented by: Piperacillin Sod/Tazobactam (Sod 4.5 gm/ Sodium Chloride) 100 mls @ 100 mls/hr IV Q6H [facility] Stop: 09/09/21 18:00 Last Admin: 09/09/21 17:43 Dose: 100 mls/hr Documented by: Vancomycin HCl 1.5 gm/ Sodium (Chloride) 250 mls @ 167 mls/hr IV Q12H [facility] Last Admin: 09/11/21 06:04 Dose: 167 mls/hr Documented by: Piperacillin Sod/Tazobactam (Sod 4.5 gm/ Sodium Chloride) 100 mls @ 100 mls/hr IV Q6H [facility] Last Admin: 09/10/21 05:20 Dose: 100 mls/hr Documented by: Sodium Chloride (Normal Saline) 1,000 mls @ 125 mls/hr IV ASDIRECTED [facility] Last Admin: 09/10/21 14:37 Dose: 125 mls/hr Documented by: Sodium Chloride (Normal Saline) 1,000 mls @ 100 mls/hr IV ASDIRECTED [facility] Last Admin: 09/11/21 09:45 Dose: 100 mls/hr Documented by: Linezolid (Zyvox) Confirm Administered Dose 300 mls @ as directed .ROUTE .STK- MED ONE Stop: 09/11/21 06:38 Lidocaine/Epinephrine (Lidocaine 1% With Epinephrine 1:100,000 50 Ml Mdv) Confirm Administered Dose 50 ml .ROUTE .STK-MED ONE Stop: 09/11/21 06:38 Linezolid (Linezolid 600 Mg/300 Ml Bag) 600 mg IRR .STK-MED ONE Stop: 09/11/21 07:46 Last Admin: 09/11/21 07:45 Dose: 600 mg Documented by: Lisinopril (Lisinopril 5 Mg Tab) 12.5 mg PO DAILY ARUN Lisinopril (Lisinopril 5 Mg Tab) 12.5 mg PO DAILY ARUN Meropenem (Meropenem 500 Mg Sdv) Confirm Administered Dose 500 mg .ROUTE .STK- MED ONE Stop: 09/11/21 06:38 Last Admin: 09/11/21 07:45 Dose: 500 mg Documented by: Midazolam HCl (Midazolam 1 Mg/Ml 2 Ml Sdv) Confirm Administered Dose 2 mg .ROUTE .STK-MED ONE Stop: 09/11/21 07:18 Propofol (Propofol 200 Mg/20 Ml Sdv) Confirm Administered Dose 200 mg .ROUTE .STK-MED ONE Stop: 09/11/21 07:18 - Exam Quality Assessment: DVT Prophylaxis General: Alert, Oriented, Cooperative, Mild Distress Lungs: Clear to Auscultation, Normal Respiratory Effort Cardiovascular: Regular Rate, Regular Rhythm, No Murmurs GI/Abdominal Exam: Soft, Non-Tender, No Organomegaly, No Distention Extremities: Other (Surgical dressing in place right foot, cellulitis significantly improved lower leg and hindfoot) - Patient Data Lab Results Last 24 hrs: Laboratory Results - last 24 hr 09/11/21 09/11/21 Range/Units 05:50 05:50 WBC 7.3 (4.5-11.0) K/uL RBC 3.37 L (4.30-5.90) M/uL Hgb 10.2 L (12.0-15.0) g/dL Hct 30.9 L (40.0-54.0) % MCV 92 (80-98) fL MCH 30 (27-31) pg MCHC 33 (32-36) % Plt Count 249 (150-400) K/uL Neut % (Auto) 65.6 (36-66) % Lymph % (Auto) 22.4 L (24-44) % Mcmullen % (Auto) 7.8 H (2-6) % Eos % (Auto) 2.7 (2-4) % Baso % (Auto) 1.5 H (0-1) % Sodium 138 L (140-148) mmol/L Potassium 4.6 (3.6-5.2) mmol/L Chloride 105 (100-108) mmol/L Carbon Dioxide 28 (21-32) mmol/L Anion Gap 9.6 (5.0-14.0) mmol/L BUN 19 H (7-18) mg/dL Creatinine 1.1 (0.8-1.3) mg/dL Est Cr Clr Drug Dosing 93.16 mL/min Estimated GFR (MDRD) > 60 (>60) Glucose 147 H (74-106) mg/dL Calcium 7.7 L (8.5-10.1) mg/dL Result Diagrams: 09/11/21 05:50 09/11/21 05:50 Nolberto Results Last 24 hrs: Microbiology 09/11/21 07:57 Gram Stain - Final Foot, Right 09/11/21 07:54 Gram Stain - Final Foot, Right 09/09/21 17:18 Aerobic Blood Culture - Preliminary Blood - Arm, Right NO GROWTH AFTER 1 DAY Anaerobic Blood Culture - Preliminary NO GROWTH AFTER 1 DAY 09/09/21 17:12 Aerobic Blood Culture - Preliminary Blood - Arm, Left NO GROWTH AFTER 1 DAY Anaerobic Blood Culture - Preliminary NO GROWTH AFTER 1 DAY Sepsis Event Note - Evaluation Sepsis Screening Result: No Definite Risk - Focused Exam Vital Signs: Vital Signs Temp Temp Pulse Resp BP BP Pulse Ox 09/11/21 11:42 97.5 F 58 L 16 138/70 98 09/11/21 10:45 58 L 16 117/92 H 98 09/11/21 09:50 67 16 115/72 115/72 100 09/11/21 09:35 66 16 120/75 100 09/11/21 09:20 59 L 16 119/70 97 09/11/21 09:05 60 16 125/68 99 09/11/21 08:48 57 L 16 122/66 98 09/11/21 08:33 95.1 F L 55 L 16 118/75 96 09/11/21 08:20 96.8 F L 57 L 14 114/71 99 09/11/21 08:15 55 L 13 112/69 98 09/11/21 08:10 55 L 13 108/65 100 09/11/21 08:05 58 L 14 100 09/11/21 08:00 97.0 F 61 14 104/61 99 09/11/21 03:00 18 - Problem List Review Problem List Initiated/Reviewed/Updated: Yes - My Orders Last 24 Hours: My Active Orders 09/10/21 15:10 Convert IV to Saline Lock [OM.PC] Routine 09/10/21 15:12 Consult to Physician [CONS] Routine 09/10/21 15:13 Notify Provider Consults [RC] ASDIRECTED 09/11/21 13:31 Convert IV to Saline Lock [OM.PC] Routine - Plan Plan:: ASSESSMENT AND PLAN Diabetic Foot Ulcer, Cellulitis right lower limb-status post drainage of abscess cavities earlier today. Cellulitis of the lower leg and hindfoot significantly improved, persistent swelling of the foot and ankle -IV Zosyn 4.5 gm every 6 hours -Zyvox per Dr. Morris -Saline lock IV -Surgical follow-up per Dr. Morris -daily dressing change -blood cultures x2 pending Diabetes type 2 with peripheral vascular complications -blood glucose check before meals- has Sp Geosignos glucose monitoring- right upper arm -Lantus 10 units subcut daily -Sliding scale insulin- low dose -Hold Metformin Hypertension- -Lisinopril 2.5 mg daily -monitor blood pressure every shift. Tobacco use - smokes 5 cigarettes for years -declines patch or gum Maintenance issues - - DVT prophylaxis - Lovenox 40 mg every 24 hours - GI prophylaxis -PPI - Nutrition - consistent carb diet - Holley catheter -not indicated CODE STATUS - FULL Admission justification -this patient will be admitted for inpatient services and is medically appropriate meeting medical necessity for inpatient admission as outlined in my documentation. I reasonably expect the patient will require inpatient services that span a period time over 2 midnights. I reasonably expect this patient to be discharged or transferred within 96 hours [facility]. Disposition -home with family Primary care physician - Dr. Chiquis Salgado [facility] - Dr. Yvonne M.D.
--- NOTE | 2021-09-11 15:05 | CRLUS ---
For Patients: As a result of the 21st Century Cures Act, medical imaging exams and procedure reports are released immediately into your electronic medical record. You may view this report before your referring provider. If you have questions, please contact your health care provider. DUPLEX ARTERIAL ULTRASOUND RIGHT LOWER EXTREMITY, 09/11/2021 COMPARISON: None. CLINICAL HISTORY: 55-year-old male with type 2 diabetes. Evaluate flow to the right leg. TECHNIQUE: Allen-scale and color spectral Doppler ultrasound imaging of the right lower extremity arterial system was performed. FINDINGS: There is scattered atherosclerotic change. Biphasic flow in the common femoral artery with a velocity of 129 cm/second. Biphasic flow in the deep femoral artery with a velocity of 112 cm/second. Biphasic flow along the proximal superficial femoral artery with a velocity of 157 cm/second. Flow then becomes [id number]-popf multiphasic measuring 126 cm/second in the mid superficial femoral artery and 114 cm/second in the distal superficial femoral artery. Proximal popliteal artery has [id number]-[id number] biphasic flow with a velocity of 111 cm/second. The velocity is 129 cm/second in the distal popliteal artery. The distal posterior tibial artery has a velocity of 168 cm/second with [id number]-[id number] low-resistance multiphasic flow. A similar appearance of flow in the dorsalis pedis artery where the velocity is 213 IMPRESSION: No evidence of hemodynamically-significant arterial stenosis or occlusion in the right lower extremity. The flow in the distal runoff vessels suggests hyperemia. TOREY COLLINS M.D. Vascular [facility] Interventional [facility]iology [email or web address] Transcribed: 12:[address]/Dictated by: Torey Collins MD @ 09/13/2021 9:29:00 AM (Electronically Signed)
[2021-09-11] MEDS: Insulin Glargine,Human Rec. Analog 100 Units/ML 3 ML Pen SUBCUT SCH (21:08)
[2021-09-11] MEDS: Enoxaparin 40 MG/0.4 ML Syringe SUBCUT SCH (21:08)
[2021-09-12] MEDS: Piperacillin/Tazobactam/Dext 4.5 GM in Premix Bag 1 BAG IV SCH ×4 (05:52→23:52)
[2021-09-12] MEDS ORDERED: Meropenem 500 MG SDV ONE (06:31)
[2021-09-12] MEDS ORDERED: fentaNYL 100 MCG/2 ML SDV ONE (07:11)
[2021-09-12] MEDS ORDERED: Propofol 200 MG/20 ML SDV ONE (07:11)
[2021-09-12] MEDS ORDERED: Meropenem 500 MG SDV IRR ONE (07:46)
[2021-09-12] MEDS: Insulin Lispro 100 Unit/ML 3 ML KwikPen SUBCUT SCH ×4 (08:16→21:04)
[2021-09-12] MEDS: Rosuvastatin 10 MG Tab PO SCH (08:19)
[2021-09-12] MEDS: Lisinopril 2.5 MG Tab PO SCH (08:19)
[2021-09-12] MEDS: Escitalopram 10 MG Tab PO SCH (08:19)
[2021-09-12] MEDS: Linezolid 600 MG in Premix Bag 1 BAG IV SCH ×2 (09:49→21:05)
--- NOTE | 2021-09-12 10:23 | OR ---
DATE OF PROCEDURE: 09/11/2021 SURGEON: Cosme Morris MD PREOPERATIVE DIAGNOSIS: Abscess involving right mid and forefoot. POSTOPERATIVE DIAGNOSIS: Deep abscess involving the right mid and forefoot with abscess cavity communicating between the plantar ulcer and open wound on dorsum of foot. OPERATIVE PROCEDURE: Incision and drainage of the abscess involving right mid and forefoot from a dorsal aspect with additional debridement of the plantar ulcer communicating with abscess cavity on the plantar aspect of foot. ANESTHESIA: IV sedation. INDICATION FOR PROCEDURE: A 55-year-old male presenting with a locally aggressive diabetic foot infection. He was seen on MRI to have multiple areas of osteomyelitis as well as soft tissue infection, abscess formation in the right mid and forefoot, this was marked by ultrasound. Plan is to proceed with incision and drainage of this, also debride the plantar ulcer which has now been present for it sounds like at least 2 months, but probably longer concurrently. Potential risks of the procedure were reviewed with the patient and and they wished to proceed. DETAILS OF PROCEDURE: The patient was taken to the operating room and placed in a supine position. IV sedation was administered after which the incision which eventually ended up being a T-shaped incision was made over the dorsum of the foot, more or less proximal to the 2nd, 3rd, and 4th toes. As one entered into the deep space, creamy purulent material was obtained. Two sets of cultures were obtained both of which showed gram-positive cocci. The area was then debrided, some tendon tissue needed to be divided in order to obtain adequate drainage. Once this was complete, palpation and probing found no additional areas of abscess formation. The plantar ulcer was then debrided and it was noted that there was some dried and purulent material within it. After debridement of the skin at the plantar ulcer site, it was noted that the 2 areas on either dorsal incision and the plantar ulcer communicated with the hemostat easily being passed between the 2 locations. At this point, no local anesthetic had been required as the patient has quite advanced neuropathy and Iodoform gauze was then placed after the wound was irrigated with a meropenem and Zyvox-containing saline solution. The patient was taken to the recovery room in satisfactory condition. Given the aggressive soft tissue infection and the Gram stain showing gram-positive cocci, we will for the time being switch him over from vancomycin to Zyvox which is shown to have superior results with soft tissue infections involving gram-positive organisms. Cosme Morris MD Job #: [id number]
--- NOTE | 2021-09-12 13:49 | CONS ---
DATE OF SERVICE: 09/11/2021 REFERRING PHYSICIAN: CONSULTING PHYSICIAN: Cosme Morris MD This is a 55-year-old male with longstanding type 2 diabetes mellitus presenting with roughly 2-month history of nonhealing plantar ulcer and then more recently developing marked edema in the right foot with fever and chills. He was admitted on IV antibiotics. MRI showed extensive osteomyelitis and soft tissue infection including abscess formation in the mid and forefoot on the right side, and the plan will be to proceed with debridement and drainage of that area tomorrow. We will adjust the antibiotics based on intraoperative Gram stain and subsequent cultures. I am not able to feel pulses in the dorsalis pedis or posterior tibial artery. This maybe due to edema. We will obtain an arterial duplex scan today to evaluate and assess the arterial inflow. If that is severely compromised, one may need to think in terms of getting some revascularization. I discussed with the patient and family members present that he might be best served by means of a below-knee amputation in the near future once the soft tissue infection is more controlled as anything short of that is going to almost certainly lead to chronic disability, whereas at age 55, he will likely be able to resume nearly normal function after being debilitated with a [id number]. This will be discussed further over time. Cosme Morris MD Job #: [id number]
--- NOTE | 2021-09-12 14:07 | OR ---
DATE OF PROCEDURE: 09/12/2021 SURGEON: Cosme Morris MD PREOPERATIVE DIAGNOSIS: Status post drainage of deep abscess, right foot. POSTOPERATIVE DIAGNOSIS: Status post drainage of deep abscess, right foot. OPERATIVE PROCEDURE: Dressing change, right foot, under anesthesia. ANESTHESIA: IV sedation. INDICATIONS FOR PROCEDURE: The patient is undergoing a dressing change under anesthesia and inspection of the foot to see if there are any additional areas of abscess formation that might have developed overnight adjacent to the area that had been drained yesterday. Potential risks of procedure were reviewed with the patient this morning and he wishes to proceed. DETAILS OF PROCEDURE: The patient was taken to the operating room, placed in a supine position. IV sedation was administered after which the previous packing was removed, and the wound inspected and found to be fairly clean. Palpation and probing did not reveal any additional areas of abscess formation. The wound was irrigated with meropenem and Zyvox- containing saline solution, and the wound then repacked with iodoform gauze, which included a full-thickness area of gauze between the incision on the dorsal aspect of the foot and the plantar ulcer area. The patient was taken to the recovery room in satisfactory condition. Cosme Morris MD Job #: [id number]
--- NOTE | 2021-09-12 14:07 | PN ---
DATE OF SERVICE: 09/12/2021 The patient has been afebrile with stable vital signs. The patient underwent dressing changes of his wound this morning and overall it looked like there was still a large amount of edema in the foot, but the marked degree of cellulitis appears to be improving somewhat. We or other providers who might be taking care of him will need to be vigilant with regard to identifying any additional abscesses that might occur. One significant development of this case is the duplex scan showing a monophasic flow from the mid superficial femoral artery downward. This would be indicative of inadequate arterial inflow to predict healing of any local wound care issues or a major amputation. Given this, the patient will likely need to be transferred for attempted revascularization of most likely the superficial femoral artery and other vessels as needed. If there are more areas of stenosis or occlusion more distally, we will discuss with Dr. Russell later this morning. Cosme Morris MD Job #: [id number]
--- NOTE | 2021-09-12 15:17 | PCM.PN ---
- General Info Date of Service: 09/12/21 Subjective Update: Mr. Leonard has been stable since yesterday with no significant temperature elevations. He did undergo further debridement of the right foot earlier today by Dr. Morris. Arterial Doppler studies of the right leg obtained yesterday show evidence of significant peripheral arterial disease. Dr. Morris has recommended transfer to a facility for peripheral arterial angiogram. Unfortunately no beds are available for transfer at the present time. He otherwise reports that he is feeling relatively well and that pain in the leg has improved. Functional Status: Reports: Tolerating Diet, Urinating - Review of Systems General: Reports: Weakness, Fatigue. Denies: Fever, Chills Pulmonary: Reports: No Symptoms Cardiovascular: Reports: No Symptoms Gastrointestinal: Reports: No Symptoms - Patient Data Vitals - Most Recent: Last Vital Signs Temp 96.8 F L 09/12/21 08:17 Pulse 59 L 09/12/21 11:05 Resp 16 09/12/21 11:05 BP 142/77 H 09/12/21 11:05 Pulse Ox 99 09/12/21 11:05 Weight - Most Recent: 206 lb 5.643 oz I&O - Last 24 Hours: Intake & Output 09/12/21 09/12/21 09/12/21 06:59 14:59 22:59 Intake Total 400 Output Total 700 Balance -700 400 Lab Results Last 24 Hours: Laboratory Results - last 24 hr 09/12/21 09/12/21 Range/Units 05:40 05:40 WBC 7.5 (4.5-11.0) K/uL RBC 3.50 L (4.30-5.90) M/uL Hgb 10.4 L (12.0-15.0) g/dL Hct 31.9 L (40.0-54.0) % MCV 91 (80-98) fL MCH 30 (27-31) pg MCHC 33 (32-36) % Plt Count 266 (150-400) K/uL Neut % (Auto) 62.9 (36-66) % Lymph % (Auto) 25.0 (24-44) % Garden % (Auto) 7.3 H (2-6) % Eos % (Auto) 3.6 (2-4) % Baso % (Auto) 1.2 H (0-1) % Sodium 141 (140-148) mmol/L Potassium 4.7 (3.6-5.2) mmol/L Chloride 105 (100-108) mmol/L Carbon Dioxide 30 (21-32) mmol/L Anion Gap 6.5 (5.0-14.0) mmol/L BUN 13 (7-18) mg/dL Creatinine 1.1 (0.8-1.3) mg/dL Est Cr Clr Drug Dosing 93.16 mL/min Estimated GFR (MDRD) > 60 (>60) Glucose 161 H (74-106) mg/dL Calcium 7.9 L (8.5-10.1) mg/dL Phosphorus 3.4 (2.5-4.9) mg/dL Magnesium 2.1 (1.8-2.4) mg/dL Total Bilirubin 0.3 (0.2-1.0) mg/dL AST 44 H D (15-37) U/L ALT 78 D (12-78) U/L Alkaline Phosphatase 166 H (46-116) U/L Total Protein 6.8 (6.4-8.2) g/dL Albumin 2.0 L (3.4-5.0) g/dL Globulin 4.8 H (2.3-3.5) g/dL Albumin/Globulin Ratio 0.4 L (1.2-2.2) Nolberto Results Last 24 Hours: Microbiology 09/11/21 07:57 Gram Stain - Final Foot, Right Wound Culture - Preliminary Viridans Streptococcus Anaerobic Culture - Preliminary NO GROWTH AFTER 1 DAY 09/11/21 07:54 Gram Stain - Final Foot, Right Wound Culture - Preliminary NO GROWTH AFTER 1 DAY Anaerobic Culture - Preliminary NO GROWTH AFTER 1 DAY 09/09/21 17:12 Aerobic Blood Culture - Preliminary Blood - Arm, Left NO GROWTH AFTER 2 DAYS Anaerobic Blood Culture - Preliminary NO GROWTH AFTER 2 DAYS 09/09/21 17:18 Aerobic Blood Culture - Preliminary Blood - Arm, Right NO GROWTH AFTER 2 DAYS Anaerobic Blood Culture - Preliminary NO GROWTH AFTER 2 DAYS Med Orders - Current: Current Medications Acetaminophen (Acetaminophen 325 Mg Tab) 650 mg PO Q4H PRN PRN Reason: Pain (Mild 1-3)/fever Last Admin: 09/10/21 23:48 Dose: 650 mg Documented by: Albuterol (Albuterol 0.083% 2.5 Mg/3 Ml Neb Soln) 2.5 mg NEB Q4H PRN PRN Reason: Shortness Of Breath/wheezing Bisacodyl (Bisacodyl 5 Mg Tab) 5 mg PO DAILY PRN PRN Reason: Constipation Dextrose/Water (50% Dextrose In Water 50 Ml Syringe) 50 ml IVPUSH ASDIRECTED PRN PRN Reason: Hypoglycemia Diphenhydramine HCl (Diphenhydramine 25 Mg Cap) 25 mg PO BEDTIME PRN PRN Reason: Insomnia Docusate Sodium (Docusate Sodium 100 Mg Cap) 100 mg PO BID PRN PRN Reason: Constipation Enoxaparin Sodium (Enoxaparin 40 Mg/0.4 Ml Syringe) 40 mg SUBCUT BEDTIME [facility] Last Admin: 09/11/21 21:08 Dose: 40 mg Documented by: Escitalopram Oxalate (Escitalopram 10 Mg Tab) 10 mg PO DAILY [facility] Last Admin: 09/12/21 08:19 Dose: 10 mg Documented by: Glucagon (Glucagon,Human Recombinant 1 Mg Vial) 1 mg IM ASDIRECTED PRN PRN Reason: Hypoglycemia Piperacillin/Tazobactam/ (Dextrose 4.5 gm/ Premix) 100 mls @ 200 mls/hr IV Q6H [facility] Last Admin: 09/12/21 11:14 Dose: 200 mls/hr Documented by: Linezolid 600 mg/ Premix 300 mls @ 300 mls/hr IV Q12H [facility] Last Admin: 09/12/21 09:49 Dose: 300 mls/hr Documented by: Insulin Glargine (Insulin Glargine,Human Rec. Analog 100 Units/Ml 3 Ml Pen) 10 units SUBCUT BEDTIME [facility] Last Admin: 09/11/21 21:08 Dose: 10 unit Documented by: Insulin Human Lispro (Insulin Lispro 100 Unit/Ml 3 Ml Kwikpen) 0 unit SUBCUT QIDACANDBED [facility]; Protocol Last Admin: 09/12/21 11:06 Dose: 3 units Documented by: Lisinopril (Lisinopril 2.5 Mg Tab) 2.5 mg PO DAILY [facility] Last Admin: 09/12/21 08:19 Dose: 2.5 mg Documented by: Lorazepam (Lorazepam 2 Mg/Ml Sdv) 1 mg IV Q6H PRN PRN Reason: Irritability Melatonin (Melatonin 3 Mg Tab) 6 mg PO BEDTIME PRN PRN Reason: Insomnia Morphine Sulfate (Morphine 2 Mg/Ml Syringe) 2 mg IVPUSH Q2H PRN PRN Reason: Pain (severe 7-10) Oxycodone HCl (Oxycodone 5 Mg Tab) 10 mg PO Q4H PRN PRN Reason: Pain (moderate 4-6) Rosuvastatin Calcium (Rosuvastatin 10 Mg Tab) 10 mg PO DAILY [facility] Last Admin: 09/12/21 08:19 Dose: 10 mg Documented by: Discontinued Medications Bupivacaine HCl (Bupivacaine 0.5% 30 Ml Sdv) Confirm Administered Dose 30 ml .ROUTE .STK-MED ONE Stop: 09/11/21 06:39 Enoxaparin Sodium (Enoxaparin 40 Mg/0.4 Ml Syringe) 40 mg SUBCUT DAILY [facility] Last Admin: 09/09/21 21:35 Dose: 40 mg Documented by: Fentanyl (Fentanyl 100 Mcg/2 Ml Sdv) Confirm Administered Dose 100 mcg .ROUTE .STK-MED ONE Stop: 09/11/21 07:18 Fentanyl (Fentanyl 100 Mcg/2 Ml Sdv) Confirm Administered Dose 100 mcg .ROUTE .STK-MED ONE Stop: 09/12/21 07:12 Gadoteridol (Gadoteridol 279.3 Mg/Ml 20 Ml Sdv) 20 ml IV . DIRECTED [facility] Last Admin: 09/10/21 10:38 Dose: 20 ml Documented by: Lactated Ringer's (Ringers, Lactated) 1,000 mls @ 999 mls/hr IV ASDIRECTED [facility] Last Admin: 09/09/21 17:44 Dose: 999 mls/hr Documented by: Piperacillin Sod/Tazobactam (Sod 4.5 gm/ Sodium Chloride) 100 mls @ 100 mls/hr IV Q6H [facility] Stop: 09/09/21 18:00 Last Admin: 09/09/21 17:43 Dose: 100 mls/hr Documented by: Vancomycin HCl 1.5 gm/ Sodium (Chloride) 250 mls @ 167 mls/hr IV Q12H [facility] Last Admin: 09/11/21 06:04 Dose: 167 mls/hr Documented by: Piperacillin Sod/Tazobactam (Sod 4.5 gm/ Sodium Chloride) 100 mls @ 100 mls/hr IV Q6H [facility] Last Admin: 09/10/21 05:20 Dose: 100 mls/hr Documented by: Sodium Chloride (Normal Saline) 1,000 mls @ 125 mls/hr IV ASDIRECTED [facility] Last Admin: 09/10/21 14:37 Dose: 125 mls/hr Documented by: Sodium Chloride (Normal Saline) 1,000 mls @ 100 mls/hr IV ASDIRECTED [facility] Last Admin: 09/11/21 09:45 Dose: 100 mls/hr Documented by: Linezolid (Zyvox) Confirm Administered Dose 300 mls @ as directed .ROUTE .STK- MED ONE Stop: 09/11/21 06:38 Linezolid (Zyvox) Confirm Administered Dose 300 mls @ as directed .ROUTE .STK- MED ONE Stop: 09/12/21 06:32 Lidocaine/Epinephrine (Lidocaine 1% With Epinephrine 1:100,000 50 Ml Mdv) Confirm Administered Dose 50 ml .ROUTE .STK-MED ONE Stop: 09/11/21 06:38 Linezolid (Linezolid 600 Mg/300 Ml Bag) 600 mg IRR .STK-MED ONE Stop: 09/11/21 07:46 Last Admin: 09/11/21 07:45 Dose: 600 mg Documented by: Linezolid (Linezolid 600 Mg/300 Ml Bag) 600 mg IRR .STK-MED ONE Stop: 09/12/21 07:36 Last Admin: 09/12/21 07:35 Dose: 600 mg Documented by: Lisinopril (Lisinopril 5 Mg Tab) 12.5 mg PO DAILY [facility] Lisinopril (Lisinopril 5 Mg Tab) 12.5 mg PO DAILY [facility] Meropenem (Meropenem 500 Mg Sdv) Confirm Administered Dose 500 mg .ROUTE .STK- MED ONE Stop: 09/11/21 06:38 Last Admin: 09/11/21 07:45 Dose: 500 mg Documented by: Meropenem (Meropenem 500 Mg Sdv) Confirm Administered Dose 500 mg .ROUTE .STK- MED ONE Stop: 09/12/21 06:32 Meropenem (Meropenem 500 Mg Sdv) 500 mg IRR .STK-MED ONE Stop: 09/12/21 07:47 Last Admin: 09/12/21 07:46 Dose: 500 mg Documented by: Midazolam HCl (Midazolam 1 Mg/Ml 2 Ml Sdv) Confirm Administered Dose 2 mg .ROUTE .STK-MED ONE Stop: 09/11/21 07:18 Propofol (Propofol 200 Mg/20 Ml Sdv) Confirm Administered Dose 200 mg .ROUTE .STK-MED ONE Stop: 09/11/21 07:18 Propofol (Propofol 200 Mg/20 Ml Sdv) Confirm Administered Dose 200 mg .ROUTE .STK-MED ONE Stop: 09/12/21 07:12 - Exam Quality Assessment: DVT Prophylaxis General: Alert, Oriented, Cooperative, Mild Distress Lungs: Clear to Auscultation, Normal Respiratory Effort Cardiovascular: Regular Rate, Regular Rhythm, No Murmurs GI/Abdominal Exam: Soft, Non-Tender, No Organomegaly, No Distention Back Exam: Other (Surgical dressing in place left foot. Cellulitis in the lower leg and hindfoot has resolved. Persistent edema of the foot and ankle) - Patient Data Lab Results Last 24 hrs: Laboratory Results - last 24 hr 09/12/21 09/12/21 Range/Units 05:40 05:40 WBC 7.5 (4.5-11.0) K/uL RBC 3.50 L (4.30-5.90) M/uL Hgb 10.4 L (12.0-15.0) g/dL Hct 31.9 L (40.0-54.0) % MCV 91 (80-98) fL MCH 30 (27-31) pg MCHC 33 (32-36) % Plt Count 266 (150-400) K/uL Neut % (Auto) 62.9 (36-66) % Lymph % (Auto) 25.0 (24-44) % Garden % (Auto) 7.3 H (2-6) % Eos % (Auto) 3.6 (2-4) % Baso % (Auto) 1.2 H (0-1) % Sodium 141 (140-148) mmol/L Potassium 4.7 (3.6-5.2) mmol/L Chloride 105 (100-108) mmol/L Carbon Dioxide 30 (21-32) mmol/L Anion Gap 6.5 (5.0-14.0) mmol/L BUN 13 (7-18) mg/dL Creatinine 1.1 (0.8-1.3) mg/dL Est Cr Clr Drug Dosing 93.16 mL/min Estimated GFR (MDRD) > 60 (>60) Glucose 161 H (74-106) mg/dL Calcium 7.9 L (8.5-10.1) mg/dL Phosphorus 3.4 (2.5-4.9) mg/dL Magnesium 2.1 (1.8-2.4) mg/dL Total Bilirubin 0.3 (0.2-1.0) mg/dL AST 44 H D (15-37) U/L ALT 78 D (12-78) U/L Alkaline Phosphatase 166 H (46-116) U/L Total Protein 6.8 (6.4-8.2) g/dL Albumin 2.0 L (3.4-5.0) g/dL Globulin 4.8 H (2.3-3.5) g/dL Albumin/Globulin Ratio 0.4 L (1.2-2.2) Result Diagrams: 09/12/21 05:40 09/12/21 05:40 Nolberto Results Last 24 hrs: Microbiology 09/11/21 07:57 Gram Stain - Final Foot, Right Wound Culture - Preliminary Viridans Streptococcus Anaerobic Culture - Preliminary NO GROWTH AFTER 1 DAY 09/11/21 07:54 Gram Stain - Final Foot, Right Wound Culture - Preliminary NO GROWTH AFTER 1 DAY Anaerobic Culture - Preliminary NO GROWTH AFTER 1 DAY 09/09/21 17:12 Aerobic Blood Culture - Preliminary Blood - Arm, Left NO GROWTH AFTER 2 DAYS Anaerobic Blood Culture - Preliminary NO GROWTH AFTER 2 DAYS 09/09/21 17:18 Aerobic Blood Culture - Preliminary Blood - Arm, Right NO GROWTH AFTER 2 DAYS Anaerobic Blood Culture - Preliminary NO GROWTH AFTER 2 DAYS Sepsis Event Note - Evaluation Sepsis Screening Result: No Definite Risk - Focused Exam Vital Signs: Vital Signs Temp Temp Pulse Resp BP BP BP 09/12/21 11:05 59 L 16 142/77 H 09/12/21 10:20 59 L 16 150/78 H 09/12/21 09:48 59 L 16 142/70 H 09/12/21 09:30 56 L 16 138/68 09/12/21 09:15 56 L 16 131/70 09/12/21 09:00 58 L 16 130/76 09/12/21 08:45 57 L 16 134/78 09/12/21 08:30 60 16 122/70 09/12/21 08:19 126/71 09/12/21 08:17 96.8 F L 54 L 16 126/71 09/12/21 08:00 97.2 F 52 L 18 118/72 09/12/21 07:55 53 L 18 118/73 09/12/21 07:50 51 L 18 119/72 09/12/21 07:45 50 L 18 109/69 09/12/21 07:40 96.6 F L 50 L 16 115/71 09/12/21 03:19 96.3 F L 63 18 128/75 Pulse Ox 09/12/21 11:05 99 09/12/21 10:20 99 09/12/21 09:48 100 09/12/21 09:30 100 09/12/21 09:15 100 09/12/21 09:00 100 09/12/21 08:45 100 09/12/21 08:30 99 09/12/21 08:19 09/12/21 08:17 99 09/12/21 08:00 96 09/12/21 07:55 95 09/12/21 07:50 96 09/12/21 07:45 97 09/12/21 07:40 99 09/12/21 03:19 93 L - Problem List Review Problem List Initiated/Reviewed/Updated: Yes - My Orders Last 24 Hours: My Active Orders 09/13/21 05:00 BASIC METABOLIC PANEL,BMP [CHEM] Timed - Plan Plan:: ASSESSMENT AND PLAN Diabetic Foot Ulcer, Cellulitis right lower limb-status post drainage of abscess cavities yesterday and earlier today. Cellulitis of the lower leg and hindfoot significantly improved, persistent swelling of the foot and ankle -IV Zosyn 4.5 gm every 6 hours -Zyvox per Dr. Morris -Saline lock IV -Surgical follow-up per Dr. Morris -daily dressing change -blood cultures x2 pending Peripheral arterial disease-arterial Doppler studies of the right leg show evidence of significant peripheral artery disease -Patient needs angiogram for further evaluation, no beds currently available for transfer Diabetes type 2 with peripheral vascular complications -blood glucose check before meals- has Sp continuos glucose monitoring- right upper arm -Lantus 10 units subcut daily -Sliding scale insulin- low dose -Hold Metformin Hypertension- -Lisinopril 2.5 mg daily -monitor blood pressure every shift. Tobacco use - smokes 5 cigarettes for years -declines patch or gum Maintenance issues - - DVT prophylaxis - Lovenox 40 mg every 24 hours - GI prophylaxis -PPI - Nutrition - consistent carb diet - Holley catheter -not indicated CODE STATUS - FULL Admission justification -this patient will be admitted for inpatient services and is medically appropriate meeting medical necessity for inpatient admission as outlined in my documentation. I reasonably expect the patient will require inpatient services that span a period time over 2 midnights. I reasonably expect this patient to be discharged or transferred within 96 [facility]. Disposition -home with family Primary care physician - Dr. Chiquis Salgado [facility] - Dr. Yvonne M.D.
[2021-09-12] MEDS: Insulin Glargine,Human Rec. Analog 100 Units/ML 3 ML Pen SUBCUT SCH (21:04)
[2021-09-12] MEDS: Enoxaparin 40 MG/0.4 ML Syringe SUBCUT SCH (21:05)
[2021-09-13] MEDS: Piperacillin/Tazobactam/Dext 4.5 GM in Premix Bag 1 BAG IV SCH ×2 (05:15→12:28)
[2021-09-13] MEDS: Insulin Lispro 100 Unit/ML 3 ML KwikPen SUBCUT SCH ×2 (07:55→11:26)
--- NOTE | 2021-09-13 08:49 | PN ---
DATE OF SERVICE: 09/13/2021 SUBJECTIVE: Blas has no concerns or questions today and denies any pain. Vital signs have been stable. His oral intake of 300 was recorded. Urine output 1050. He has been voiding independently, and he did have two bowel movements which are loose. REVIEW OF SYSTEMS: Remainder of review of systems negative for any pertinent positives and negatives. OBJECTIVE: GENERAL: Blas is a pleasant 55-year-old male. He is alert and orientated. VITAL SIGNS: TPR is 97.9, 57, 16, blood pressure 143/81. HEENT: Negative. NECK: Supple. HEART: Regular rate and rhythm. LUNGS: Clear. ABDOMEN: Negative. EXTREMITIES: Right foot dressing was changed per Cosme Morris MD. ASSESSMENT: 1. Incision and drainage of abscess, right foot, 09/11/2021. 2. Dressing change, 09/12/2021, Cosme Morris MD, in [place]. 3. Diabetes. PLAN: 1. Dressing was changed at bedside. The patient due to neuropathy had no pain. Rx, Culturelle one b.i.d., p.o. antibiotic regimen to be simplified per hospitalist. 2. We will evaluate p.r.n. or in a.m. Soco Bourgeois PA-C /[id number]
[2021-09-13] MEDS ORDERED: Lactobacillus Rhamnosus GG (Probiotic) Cap PO SCH (09:00)
[2021-09-13] MEDS: Escitalopram 10 MG Tab PO SCH (09:33)
[2021-09-13] MEDS: Lisinopril 2.5 MG Tab PO SCH (09:33)
[2021-09-13] MEDS: Rosuvastatin 10 MG Tab PO SCH (09:33)
[2021-09-13] MEDS: Linezolid 600 MG in Premix Bag 1 BAG IV SCH (09:34)
[2021-09-13] MEDS ORDERED: Ondansetron 4 MG Tab.DIS PO PRN (11:13)
[2021-09-13 11:25] VITALS: BP 155/80; PULSE 56
--- NOTE | 2021-09-13 14:58 | PCM.DCSUM1 ---
Discharge Summary - Hospital Course Brief History: 55-year-old male with history of tobacco dependence, type 2 diabetes mellitus with long-term insulin use who presented with redness, warmth and swelling of the right foot. He was admitted for management of cellulitis and abscess of the right foot extending up the right leg and concern for underlying osteomyelitis. Diagnosis: Stroke: No - Discharge Data Discharge Date: 09/13/21 Discharge Disposition: Home, Self-Care 01 Condition: Stable - Referral to Home Health Primary Care Physician: Chiquis Salgado MD - Discharge Diagnosis/Problem(s) (1) Cellulitis and abscess of right lower extremity SNOMED Code(s): 950295635 ICD Code: L03.115 - CELLULITIS OF RIGHT LOWER LIMB; L02.415 - CUTANEOUS ABSCESS OF RIGHT LOWER LIMB Status: Acute (2) Osteomyelitis of foot, right, acute SNOMED Code(s): 5934266552975686 ICD Code: M86.171 - OTHER ACUTE OSTEOMYELITIS, RIGHT ANKLE AND FOOT Status: Acute (3) Peripheral vascular disease due to secondary diabetes SNOMED Code(s): 492409885, 027298037 ICD Code: E13.51 - OTH DIABETES W DIABETIC PERIPHERAL ANGIOPATHY W/O GANGRENE Status: Acute (4) Diabetic foot ulcer SNOMED Code(s): 131966949 ICD Code: E11.621 - TYPE 2 DIABETES MELLITUS WITH FOOT ULCER; L97.509 - NON- PRESSURE CHRONIC ULCER OTH PRT UNSP FOOT W UNSP SEVERITY Status: Acute Qualifiers: Diabetic foot ulcer location: midfoot Diabetes mellitus type: type 2 Laterality: right Non-pressure ulcer stage: with fat layer exposed Qualified Code(s): E11.621 - Type 2 diabetes mellitus with foot ulcer; L97.412 - Non- pressure chronic ulcer of right heel and midfoot with fat layer exposed (5) Tobacco dependence due to cigarettes SNOMED Code(s): 79789853079867954 ICD Code: F17.210 - NICOTINE DEPENDENCE, CIGARETTES, UNCOMPLICATED Status: Chronic Priority: High - Patient Summary/Data Consults: Consultations 09/09/21 19:04 Consult to Wound Care Services [CONS] Routine Comment: Physician Instructions: 09/10/21 15:12 Consult to Physician [CONS] Routine Consulting Provider: Cosme Morris Courtesy Call Completed to Consulting Physician: Yes Reason for Consult: Infection right foot 09/12/21 08:31 Consult to Physician [CONS] Routine Consulting Provider: Ck Russell Call Completed to Consulting Physician: No: will inform face/face Reason for Consult: patients vascular status Date Notified: 09/12/21 Time Notified: 08:32 Hospital Course: Blas was sent to the emergency room for evaluation after presenting to the clinic with a red, warm and swollen right foot. He had reported fevers at home as well. Work-up in the emergency room was concerning for cellulitis and possible underlying abscess of the right foot. He had a known diabetic foot ulcer on that side. He was admitted to the hospital and started on broad- spectrum antibiotics. Blood cultures were obtained at the time of admission. The next day an MRI was completed which showed evidence for 2 different areas of abscess in the right foot as well as septic arthritis of the second and third digits as well as osteomyelitis of the head of the second and third metatarsals. The surgical team was consulted for consideration of incision and debridement of the abscesses. This was performed the next morning on the . Cultures were obtained at that time no organisms were seen on the Gram stain. Broad- spectrum antibiotics (Pip/Tazo and linezolid) were continued. On the we did also obtain ultrasound studies of the vasculature of the right leg. These were suggestive of severe stenosis of the proximal vessels in the right thigh. Monophasic waves forms with increased velocity were noted throughout the right lower extremity. The cellulitis portion of the infection seemed to be improving and the swelling of the right foot had been improving. The patient was taken back to the operating room on the for a second debridement. Further improvement in the area of cellulitis was seen at that time as well. There was concern that with his osteomyelitis and severe peripheral vascular disease that any sort of operation whether it would be incision and debridement or potentially a below the knee amputation would have a very poor chance of healing. Discussions were held with the family and the hope was that the patient could be transferred for definitive care. Multiple attempts were made on the to consider transfer but no beds were available. Similar discussions were held on the . I did contact several hospitals to consider transfer and unfortunately no beds were available or they recommended outpatient treatment. Patient's was quite frustrated with the lack of beds available. She and her are extremely worried about his leg and worried that without some sort of intervention he may lose either part of his foot or potentially his leg below the knee. She reported to me that she was going to be taking him from the hospital this evening and taking him to a different emergency room. She was frustrated with availability of what she felt were emergent procedures. We discussed the usual proper channels for transfer but she said she was leaving with or without my blessings. The patient is probably stable for the trip at this time but will be in need of antibiotics this evening. I discussed my concerns about the lack of a plan once he gets to a different facility. I expressed my concern that they may not even have a bed available if she were to go somewhere else. We did review that he is getting better but she is very worried that without a procedure done urgently/emergently he is at high risk for losing his leg and felt that immediately moving to a different hospital was necessary. I did agree to discharge the patient but expressed my concern that this was not done in the usual fashion and there were risks attached to this. Patient was discharged in stable condition. Of note, his blood cultures have all been negative. He had 2 wound cultures from the debridement of the right foot with only a few colonies of strep viridans growing. His white blood cell count has been normal throughout the hospitalization and he has not had any fevers while he has been admitted. - Patient Instructions Diet: Diabetic Diet Activity: As Tolerated Showering/Bathing: May Shower Notify Provider of: Fever, Increased Pain - Discharge Plan *PRESCRIPTION DRUG MONITORING PROGRAM REVIEWED*: Not Applicable *COPY OF PRESCRIPTION DRUG MONITORING REPORT IN PATIENT VAL: Not Applicable Home Medications: Home Meds Escitalopram Oxalate [Lexapro] 10 mg PO DAILY 02/18/20 [History] Rosuvastatin [Crestor] 10 mg PO DAILY 02/18/20 [History] lisinopriL [Zestril] 2.5 mg PO DAILY 02/18/20 [History] metFORMIN [Glucophage] 1,000 mg PO BIDMEALS 02/18/20 [History] Aspirin [Aspirin EC] 325 mg PO DAILY 09/09/21 [History] Dulaglutide [Trulicity] 0.75 mg SQ WEEKLY 09/09/21 [History] Insulin Glarg,Human.Rec.Analog [Lantus Solostar] 10 units SQ BEDTIME 09/09/21 [History] Oxygen Therapy Mode: Room Air Patient Handouts: Fall Prevention in the Home, Adult, [id number], Cellulitis, Adult, [id number] Forms: ED Department Discharge Referrals: Chiquis Salgado MD [Primary Care Provider] - - Discharge Summary/Plan Comment DC Time >30 min.: No Total # of Minutes for Discharge Time: 25 - Patient Data Vitals - Most Recent: Last Vital Signs Temp 36.5 C 09/13/21 11:00 Pulse 56 L 09/13/21 11:00 Resp 16 09/13/21 11:00 BP 155/80 H 09/13/21 11:00 Pulse Ox 100 09/13/21 11:00 Weight - Most Recent: 93.44 kg I&O - Last 24 hours: Intake & Output 09/12/21 09/13/21 09/13/21 22:59 06:59 14:59 Intake Total 500 640 Output Total 450 600 600 Balance -450 -100 40 Lab Results - Last 24 hrs: Laboratory Results - last 24 hr 09/13/21 Range/Units 04:15 Sodium 140 (140-148) mmol/L Potassium 4.1 (3.6-5.2) mmol/L Chloride 105 (100-108) mmol/L Carbon Dioxide 26 (21-32) mmol/L Anion Gap 8.7 (5.0-14.0) mmol/L BUN 10 (7-18) mg/dL Creatinine 1.1 (0.8-1.3) mg/dL Est Cr Clr Drug Dosing 93.12 mL/min Estimated GFR (MDRD) > 60 (>60) Glucose 170 H (74-106) mg/dL Calcium 7.8 L (8.5-10.1) mg/dL KO Results - Last 24 hrs: Microbiology 09/11/21 07:57 Gram Stain - Final Foot, Right Wound Culture - Final Viridans Streptococcus Anaerobic Culture - Preliminary NO GROWTH AFTER 2 DAYS 09/11/21 07:54 Gram Stain - Final Foot, Right Wound Culture - Preliminary NO GROWTH AFTER 2 DAYS Anaerobic Culture - Preliminary NO GROWTH AFTER 2 DAYS 09/09/21 17:18 Aerobic Blood Culture - Preliminary Blood - Arm, Right NO GROWTH AFTER 3 DAYS Anaerobic Blood Culture - Preliminary NO GROWTH AFTER 3 DAYS 09/09/21 17:12 Aerobic Blood Culture - Preliminary Blood - Arm, Left NO GROWTH AFTER 3 DAYS Anaerobic Blood Culture - Preliminary NO GROWTH AFTER 3 DAYS Med Orders - Current: Current Medications Acetaminophen (Acetaminophen 325 Mg Tab) 650 mg PO Q4H PRN PRN Reason: Pain (Mild 1-3)/fever Last Admin: 09/10/21 23:48 Dose: 650 mg Documented by: Albuterol (Albuterol 0.083% 2.5 Mg/3 Ml Neb Soln) 2.5 mg NEB Q4H PRN PRN Reason: Shortness Of Breath/wheezing Bisacodyl (Bisacodyl 5 Mg Tab) 5 mg PO DAILY PRN PRN Reason: Constipation Dextrose/Water (50% Dextrose In Water 50 Ml Syringe) 50 ml IVPUSH ASDIRECTED PRN PRN Reason: Hypoglycemia Diphenhydramine HCl (Diphenhydramine 25 Mg Cap) 25 mg PO BEDTIME PRN PRN Reason: Insomnia Docusate Sodium (Docusate Sodium 100 Mg Cap) 100 mg PO BID PRN PRN Reason: Constipation Enoxaparin Sodium (Enoxaparin 40 Mg/0.4 Ml Syringe) 40 mg SUBCUT BEDTIME [facility] Last Admin: 09/12/21 21:05 Dose: 40 mg Documented by: Escitalopram Oxalate (Escitalopram 10 Mg Tab) 10 mg PO DAILY [facility] Last Admin: 09/13/21 09:33 Dose: 10 mg Documented by: Glucagon (Glucagon,Human Recombinant 1 Mg Vial) 1 mg IM ASDIRECTED PRN PRN Reason: Hypoglycemia Piperacillin/Tazobactam/ (Dextrose 4.5 gm/ Premix) 100 mls @ 200 mls/hr IV Q6H [facility] Last Admin: 09/13/21 12:28 Dose: 200 mls/hr Documented by: Linezolid 600 mg/ Premix 300 mls @ 300 mls/hr IV Q12H [facility] Last Admin: 09/13/21 09:34 Dose: 300 mls/hr Documented by: Insulin Glargine (Insulin Glargine,Human Rec. Analog 100 Units/Ml 3 Ml Pen) 10 units SUBCUT BEDTIME [facility] Last Admin: 09/12/21 21:04 Dose: 10 unit Documented by: Insulin Human Lispro (Insulin Lispro 100 Unit/Ml 3 Ml Kwikpen) 0 unit SUBCUT QIDACANDBED [facility]; Protocol Last Admin: 09/13/21 11:26 Dose: 2 units Documented by: Lactobacillus Rhamnosus (Lactobacillus Rhamnosus Gg (Probiotic) Cap) 1 cap PO BID [facility] Last Admin: 09/13/21 09:33 Dose: 1 cap Documented by: Lisinopril (Lisinopril 2.5 Mg Tab) 2.5 mg PO DAILY [facility] Last Admin: 09/13/21 09:33 Dose: 2.5 mg Documented by: Lorazepam (Lorazepam 2 Mg/Ml Sdv) 1 mg IV Q6H PRN PRN Reason: Irritability Melatonin (Melatonin 3 Mg Tab) 6 mg PO BEDTIME PRN PRN Reason: Insomnia Morphine Sulfate (Morphine 2 Mg/Ml Syringe) 2 mg IVPUSH Q2H PRN PRN Reason: Pain (severe 7-10) Ondansetron HCl (Ondansetron 4 Mg Tab.Dis) 4 mg PO Q4H PRN PRN Reason: Nausea/Vomiting Last Admin: 09/13/21 12:41 Dose: 4 mg Documented by: Oxycodone HCl (Oxycodone 5 Mg Tab) 10 mg PO Q4H PRN PRN Reason: Pain (moderate 4-6) Rosuvastatin Calcium (Rosuvastatin 10 Mg Tab) 10 mg PO DAILY [facility] Last Admin: 09/13/21 09:33 Dose: 10 mg Documented by: Discontinued Medications Bupivacaine HCl (Bupivacaine 0.5% 30 Ml Sdv) Confirm Administered Dose 30 ml .ROUTE .STK-MED ONE Stop: 09/11/21 06:39 Enoxaparin Sodium (Enoxaparin 40 Mg/0.4 Ml Syringe) 40 mg SUBCUT DAILY [facility] Last Admin: 09/09/21 21:35 Dose: 40 mg Documented by: Fentanyl (Fentanyl 100 Mcg/2 Ml Sdv) Confirm Administered Dose 100 mcg .ROUTE .STK-MED ONE Stop: 09/11/21 07:18 Fentanyl (Fentanyl 100 Mcg/2 Ml Sdv) Confirm Administered Dose 100 mcg .ROUTE .STK-MED ONE Stop: 09/12/21 07:12 Gadoteridol (Gadoteridol 279.3 Mg/Ml 20 Ml Sdv) 20 ml IV . DIRECTED [facility] Last Admin: 09/10/21 10:38 Dose: 20 ml Documented by: Lactated Ringer's (Ringers, Lactated) 1,000 mls @ 999 mls/hr IV ASDIRECTED [facility] Last Admin: 09/09/21 17:44 Dose: 999 mls/hr Documented by: Piperacillin Sod/Tazobactam (Sod 4.5 gm/ Sodium Chloride) 100 mls @ 100 mls/hr IV Q6H [facility] Stop: 09/09/21 18:00 Last Admin: 09/09/21 17:43 Dose: 100 mls/hr Documented by: Vancomycin HCl 1.5 gm/ Sodium (Chloride) 250 mls @ 167 mls/hr IV Q12H [facility] Last Admin: 09/11/21 06:04 Dose: 167 mls/hr Documented by: Piperacillin Sod/Tazobactam (Sod 4.5 gm/ Sodium Chloride) 100 mls @ 100 mls/hr IV Q6H [facility] Last Admin: 09/10/21 05:20 Dose: 100 mls/hr Documented by: Sodium Chloride (Normal Saline) 1,000 mls @ 125 mls/hr IV ASDIRECTED [facility] Last Admin: 09/10/21 14:37 Dose: 125 mls/hr Documented by: Sodium Chloride (Normal Saline) 1,000 mls @ 100 mls/hr IV ASDIRECTED [facility] Last Admin: 09/11/21 09:45 Dose: 100 mls/hr Documented by: Lidocaine/Epinephrine (Lidocaine 1% With Epinephrine 1:100,000 50 Ml Mdv) Confirm Administered Dose 50 ml .ROUTE .STK-MED ONE Stop: 09/11/21 06:38 Linezolid (Linezolid 600 Mg/300 Ml Bag) 600 mg IRR .STK-MED ONE Stop: 09/11/21 07:46 Last Admin: 09/11/21 07:45 Dose: 600 mg Documented by: Linezolid (Linezolid 600 Mg/300 Ml Bag) 600 mg IRR .STK-MED ONE Stop: 09/12/21 07:36 Last Admin: 09/12/21 07:35 Dose: 600 mg Documented by: Lisinopril (Lisinopril 5 Mg Tab) 12.5 mg PO DAILY [facility] Lisinopril (Lisinopril 5 Mg Tab) 12.5 mg PO DAILY [facility] Meropenem (Meropenem 500 Mg Sdv) Confirm Administered Dose 500 mg .ROUTE .STK- MED ONE Stop: 09/11/21 06:38 Last Admin: 09/11/21 07:45 Dose: 500 mg Documented by: Meropenem (Meropenem 500 Mg Sdv) 500 mg IRR .STK-MED ONE Stop: 09/12/21 07:47 Last Admin: 09/12/21 07:46 Dose: 500 mg Documented by: Midazolam HCl (Midazolam 1 Mg/Ml 2 Ml Sdv) Confirm Administered Dose 2 mg .ROUTE .STK-MED ONE Stop: 09/11/21 07:18 Propofol (Propofol 200 Mg/20 Ml Sdv) Confirm Administered Dose 200 mg .ROUTE .STK-MED ONE Stop: 09/11/21 07:18 Propofol (Propofol 200 Mg/20 Ml Sdv) Confirm Administered Dose 200 mg .ROUTE .STK-MED ONE Stop: 09/12/21 07:12
== END 2021-09-13 16:15 | disposition home or self-care (01) | DRG 623 ==
LOC: JP.ED 15:56 → JP.MS 19:31
PROVIDERS: ADMIT Hospitalist; ATTEND Internal Medicine
PROC: 0KBV0ZZ Excision of Right Foot Muscle, Open Approach (ICD-10-PCS; principal; 2021-09-11)
PROC: 2W0SX4Z Change Bandage on Right Foot (ICD-10-PCS; 2021-09-12)
DX: E11.69 Type 2 diabetes mellitus with other specified complication (principal); M86.171 Other acute osteomyelitis, right ankle and foot; L03.115 Cellulitis of right lower limb; L02.611 Cutaneous abscess of right foot; L97.412 Non-pressure chronic ulcer of right heel and midfoot with fat layer exposed; M00.9 Pyogenic arthritis, unspecified; L02.415 Cutaneous abscess of right lower limb; M86.8X7 Other osteomyelitis, ankle and foot; E11.621 Type 2 diabetes mellitus with foot ulcer; E11.51 Type 2 diabetes mellitus with diabetic peripheral angiopathy without gangrene; F17.210 Nicotine dependence, cigarettes, uncomplicated; Z20.822 Contact with and (suspected) exposure to COVID-19; E78.00 Pure hypercholesterolemia, unspecified; I10 Essential (primary) hypertension; F32.A Depression, unspecified; Z85.47 Personal history of malignant neoplasm of testis; Z79.4 Long term (current) use of insulin; Z79.82 Long term (current) use of aspirin; Z90.89 Acquired absence of other organs; Z86.19 Personal history of other infectious and parasitic diseases
CPT/HCPCS: 0241U; 36415; 73720-RT; 73723-RT; 76881-RT; 80048; 80053; 82947; 83605; 83735; 84100; 84145; 85025; 86140; 87040; 87070; 87075; 87205; 93926-RT; 96365; 99223; 99232; 99238; 99284-25; A9270-GY; A9579; J1650; J1815; J1815-GY; J2020; J2185; J2250; J2543; J2704; J3010; J3370; J3490; J7030; J7050; J7120